=== PATIENT | female | born 1985 | race Hispanic/Latino ===

== ENCOUNTER 2018-01-01 11:52 | Emergency (ER) | payer SELFPAY ==
[2018-01-01] MEDS ORDERED: ONDANSETRON 4 MG (ODT) TAB ONE (12:43)
[2018-01-01] MEDS ORDERED: KETOROLAC 30 MG/ML INJ ONE (12:44)
[2018-01-01 12:54] LABS: Urine Blood NEGATIVE (NEG); Urine Glucose NEGATIVE (NEG); Urine Protein NEGATIVE (NEG); Urine pH 6.5 (5.0-7.0)
--- NOTE | 2018-01-01 13:44 | RAD REPORT ---
EXAM DESCRIPTION: RAD - Ribs Left - 01/01/2018 1:21 pm CLINICAL HISTORY: Fall 2-3 weeks earlier, persistent left rib pain COMPARISON: None. FINDINGS: No displaced rib fracture is seen and no non-displaced rib fractures suspected. No aggress estela rib lesion. No underlying pneumothorax, effusion, infiltrate or pulmonary contusion. IMPRESSION: No displaced rib fracture seen and no nondisplaced acute or subacute fracture seen. No pneumothorax or other acute pleural/parenchymal process.
--- NOTE | 2018-01-01 13:59 | EDPHYS ---
Physician Documentation [facility] Name: Shani Pat Age: 32 yrs Sex: Female : 1985 Arrival Date: 01/01/2018 Time: 11:57 Bed 11 Private MD: None, None ED Physician Jan Perry HPI: 01/01 12:38 This 32 yrs old Female presents to ER via Ambulatory with complaints of Chest snw Wall Injury. 12:38 The patient or guardian reports chest pain that is located primarily in the anterior snw chest wall, left lateral anterior chest. Onset: The symptoms/episode began/occurred suddenly, 2 day(s) ago, and became worse today, and became persistent. The pain does not radiate. Associated signs and symptoms: Pertinent positives: vomiting. The chest pain is described as sharp, stabbing. Severity of pain: At its worst the pain was severe. The patient has not experienced similar symptoms in the past. The patient has not recently seen a physician. Historical: - Allergies: 12:03 No Known Allergies; hb - Home Meds: 12:03 None [Active]; hb - PMHx: 12:03 None; hb - PSHx: 12:03 None; hb - Immunization history:: Adult Immunizations up to date. - Social history:: Smoking status: Patient uses tobacco products, denies chronic smoking, but will smoke occasionally. - Ebola Screening: : No symptoms or risks identified at this time. ROS: 12:37 Constitutional: Negative for fever, chills, and weight loss, Eyes: Negative for injury, snw pain, redness, and discharge, ENT: Negative for injury, pain, and discharge, Neck: Negative for injury, pain, and swelling, Cardiovascular: Negative for chest pain, palpitations, and edema, Abdomen/GI: Negative for abdominal pain, diarrhea, and constipation, + nausea/vomiting this am. Back: Negative for injury and pain, : Negative for injury, bleeding, discharge, and swelling, Skin: Negative for injury, rash, and discoloration. 12:37 MS/extremity: Positive for injury or acute deformity, decreased range of motion, tenderness, of the left lateral anterior chest. Exam: 12:35 Constitutional: This is a well developed, well nourished patient who is awake, alert, snw and in no acute distress. Head/Face: Normocephalic, atraumatic. Eyes: Pupils equal round and reactive to light, extra-ocular motions intact. Lids and lashes normal. Conjunctiva and sclera are non-icteric and not injected. Cornea within normal limits. Periorbital areas with no swelling, redness, or edema. ENT: Nares patent. No nasal discharge, no septal abnormalities noted. Tympanic membranes are normal and external auditory canals are clear. Oropharynx with no redness, swelling, or masses, exudates, or evidence of obstruction, uvula midline. Mucous membranes moist. Neck: Trachea midline, no thyromegaly or masses palpated, and no cervical lymphadenopathy. Supple, full range of motion without nuchal rigidity, or vertebral point tenderness. No Meningismus. 12:35 Cardiovascular: Regular rate and rhythm with a normal S1 and S2. No gallops, murmurs, or rubs. Normal PMI, no JVD. No pulse deficits. Abdomen/GI: Soft, non-tender, with normal bowel sounds. No distension or tympany. No guarding or rebound. No evidence of tenderness throughout. Back: No spinal tenderness. No costovertebral tenderness. Full range of motion. Skin: Warm, dry with normal turgor. Normal color with no rashes, no lesions, and no evidence of cellulitis. MS/ Extremity: Pulses equal, no cyanosis. Neurovascular intact. Full, normal range of motion. Neuro: Awake and alert, GCS 15, oriented to person, place, time, and situation. Cranial nerves II-XII grossly intact. Motor strength 5/5 in all extremities. Sensory grossly intact. Cerebellar exam normal. Normal gait. 12:35 Chest/axilla: Inspection: ecchymosis, that is moderate, of the left lateral anterior chest Palpation: crepitus, is not appreciated, tenderness, that is moderate, that totally reproduces the patient's complaints, Axilla: are normal. 12:35 Respiratory: the patient does not display signs of respiratory distress, Respirations: shallow respirations, splinting, that is moderate, Breath sounds: are clear throughout. Vital Signs: 12:02 BP 133 / 88; Pulse 105; Resp 18; Temp 97.8; Pulse Ox 99% on R/A; Weight 61.23 kg; hb Height 5 ft. 2 in. (157.48 cm); Pain 9/10; 14:00 BP 126 / 78; Pulse 92; Resp 16; Pulse Ox 100% on R/A; hb 12:02 Body Mass Index 24.69 (61.23 kg, 157.48 cm) hb MDM: 12:22 Patient medically screened. lina 14:03 Data reviewed: vital signs, nurses notes. Data interpreted: Pulse oximetry: on room air snw is 99 %. Interpretation: normal. Counseling: I had a detailed discussion with the patient and/or guardian regarding: the historical points, exam findings, and any diagnostic results supporting the discharge/admit diagnosis, the presence of at least one elevated blood pressure reading (>120/80) during this emergency department visit, lab results, the need for outpatient follow up, to return to the emergency department if symptoms worsen or persist or if there are any questions or concerns that arise at home. Special discussion: Based on the patient's history, exam, and Dx evaluation, there is no indication for emergent intervention or inpatient Tx. It is understood by the patient/guardian that if the Sx's persist or worsen they need to return immediately for re-evaluation. I have referred the patient to see his PCP for further evaluation of high blood pressure. Based on the history and exam findings, there is no indication for further emergent testing or inpatient evaluation. I discussed with the patient/guardian the need to see the primary care provider for further evaluation of the symptoms. 01/01 12:47 Order name: Urine Dipstick--Ancillary (enter results); Complete Time: 13:00 ag 01/01 12:47 Order name: Urine --Ancillary (enter results); Complete Time: 13:00 ag 01/01 12:06 Order name: Ribs Left XRAY; Complete Time: 13:53 snw 01/01 12:06 Order name: Urine Test (obtain specimen); Complete Time: 12:47 snw 01/01 12:06 Order name: Urine Dipstick-Ancillary (obtain specimen); Complete Time: 12:47 snw Administered Medications: 12:47 Drug: TORadol 60 mg Route: IM; Site: right gluteus; sv 12:47 Drug: Zofran 4 mg Route: PO; sv Disposition: 14:32 Co-signature as Attending Physician, Jan Perry MD I agree with the assessment and [facility] plan of care. Disposition: 01/01/18 13:58 Discharged to Home. Impression: Fall on same level from slipping, tripping and stumbling with subsequent striking against object, Contusion of left front wall of thorax. - Condition is Stable. - Discharge Instructions: Rib Contusion, Fall Prevention and Home Safety, Rib Fracture. - Prescriptions for Zofran 8 mg Oral Tablet - take 1 tablet by ORAL route every 12 hours As needed; 15 tablet. Diclofenac Sodium 75 mg Oral Tablet Sustained Release - take 1 tablet by ORAL route 2 times per day; 30 tablet. - Medication Reconciliation Form, Thank You Letter, Antibiotic Education, Prescription Opioid Use form. - Follow up: Private Physician; When: 2 - 3 days; Reason: Recheck today's complaints, Continuance of care, Re-evaluation by your physician. Follow up: Emergency Department; When: As needed; Reason: Worsening of condition. Signatures: Dispatcher [employer] Christina Velázquez, Jan Licea RN, MD MD cha Therrien, Shelly, LINE THERAPIST-C LINE THERAPIST-Csnw Susana Fabian RN RN Corrections: (The following items were deleted from the chart) 14:11 13:58 01/01/2018 13:58 Discharged to Home. Impression: Fall on same level from hb slipping, tripping and stumbling with subsequent striking against object; Contusion of left front wall of thorax. Condition is Stable. Forms are Medication Reconciliation Form, Thank You Letter, Antibiotic Education, Prescription Opioid Use. Follow up: Private Physician; When: 2 - 3 days; Reason: Recheck today's complaints, Continuance of care, Re-evaluation by your physician. Follow up: Emergency Department; When: As needed; Reason: Worsening of condition. snw
--- NOTE | 2018-01-01 13:59 | ER ---
Nurse's Notes [facility] Name: Shani Pat Age: 32 yrs Sex: Female : 1985 Arrival Date: 01/01/2018 Time: 11:57 Bed 11 Private MD: None, None Diagnosis: Fall on same level from slipping, tripping and stumbling with subsequent striking against object;Contusion of left front wall of thorax Presentation: 01/01 12:00 Presenting complaint: Patient states: Fell in shower 2 days ago, landed on side of tub, hb now c/o left sided rib cage pain /10. Care prior to arrival: None. 12:00 Acuity: CECI 4 hb 12:00 Method Of Arrival: Ambulatory hb 12:48 Transition of care: patient was not received from another setting of care. Onset of sv symptoms was December 30, 2017. Risk Assessment: Do you want to hurt yourself or someone else? Patient reports no desire to harm self or others. Initial Sepsis Screen: Does the patient meet any 2 criteria? No. Patient's initial sepsis screen is negative. Does the patient have a suspected source of infection? No. Patient's initial sepsis screen is negative. Historical: - Allergies: 12:03 No Known Allergies; hb - Home Meds: 12:03 None [Active]; hb - PMHx: 12:03 None; hb - PSHx: 12:03 None; hb - Immunization history:: Adult Immunizations up to date. - Social history:: Smoking status: Patient uses tobacco products, denies chronic smoking, but will smoke occasionally. - Ebola Screening: : No symptoms or risks identified at this time. Screenin:49 Abuse screen: Denies threats or abuse. Denies injuries from another. Nutritional sv screening: No deficits noted. Tuberculosis screening: No symptoms or risk factors identified. Fall Risk None identified. Assessment: 12:15 General: Appears in no apparent distress. uncomfortable, Behavior is calm, cooperative. hb Pain: Pain currently is 9 out of 10 on a pain scale. Neuro: Level of Consciousness is awake, alert, obeys commands, Oriented to person, place, time, situation. Cardiovascular: Capillary refill < 3 seconds Patient's skin is warm and dry. Respiratory: Airway is patent Trachea midline Respiratory effort is even, unlabored, Respiratory pattern is regular, symmetrical. Musculoskeletal: Reports pain in left lateral anterior chest. Vital Signs: 12:02 BP 133 / 88; Pulse 105; Resp 18; Temp 97.8; Pulse Ox 99% on R/A; Weight 61.23 kg; hb Height 5 ft. 2 in. (157.48 cm); Pain 9/10; 14:00 BP 126 / 78; Pulse 92; Resp 16; Pulse Ox 100% on R/A; hb 12:02 Body Mass Index 24.69 (61.23 kg, 157.48 cm) hb ED Course: 11:57 Patient arrived in ED. sb2 11:57 None, None is Private Physician. sb2 12:02 Triage completed. hb 12:03 Arm band placed on right wrist. hb 12:05 Celia Wooten FNP-C is [facility]. snw 12:05 Jan Perry MD is Attending Physician. snw 12:29 Susana Fabian, RN is Primary Nurse. hb 12:48 Patient has correct armband on for positive identification. sv 13:18 Awaiting for x-ray. sv 13:18 X-ray completed. Patient tolerated procedure well. Patient moved to radiology via sw wheelchair. Patient moved back from radiology. 13:20 Ribs Left XRAY In Process Unspecified. EDMS 14:10 No provider procedures requiring assistance completed. Patient did not have IV access hb during this emergency room visit. Administered Medications: 12:47 Drug: TORadol 60 mg Route: IM; Site: right gluteus; sv 12:47 Drug: Zofran 4 mg Route: PO; sv Outcome: 13:58 Discharge ordered by . snw 14:09 Discharged to home ambulatory. hb 14:09 Condition: stable 14:09 Discharge instructions given to patient, Instructed on discharge instructions, follow up and referral plans. medication usage, Demonstrated understanding of instructions, follow-up care, medications, Prescriptions given X 2. 14:11 Patient left the ED. hb Signatures: Dispatcher [employer] EDMS Christina Marie, RN RN Celia Wooten FNP-C BLOOD BANK WORKER-Justyna Christopher Susana Fabian, RN RN Ayanna Spears sb2
== END 2018-01-01 14:11 | disposition home or self-care (01) ==
LOC: ER 11:52
DX: S20.212A Contusion of left front wall of thorax, initial encounter (principal); W01.10XA Fall on same level from slipping, tripping and stumbling with subsequent striking against unspecified object, initial encounter; Y93.9 Activity, unspecified; Y92.9 Unspecified place or not applicable; Z72.0 Tobacco use
CPT/HCPCS: 81003; 81025; 96372; 99283

== ENCOUNTER 2018-01-03 15:20 | Emergency (ER) | payer SELFPAY ==
--- NOTE | 2018-01-03 16:34 | EDPHYS ---
Physician Documentation [facility] Name: Shani Pat Age: 32 yrs Sex: Female : 1985 Arrival Date: 01/03/2018 Time: 15:23 Bed 5 Private MD: None, None ED Physician Gilberto Alexander HPI: 01/03 16:03 This 32 yrs old Female presents to ER via Ambulatory with complaints of pm1 vomiting and diarrhea. 16:08 Patient with complaints of possible reactions of nausea and vomiting. pm1 16:08 Patient was seen here two days ago for left rib pain and discharged home with pm1 diclofenac and Zofran. Patient fell about 1 week ago in the shower and landed on her left rib cage. Patient diagnosed with rib fractures. Patient was not able to afford the Zofran but has been taking diclofenac. When the patient has been taking the diclofenac with food she reports that she vomits. Patient has been having multiple episodes of diarrhea for the past two days. 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 Patient without any abdominal pain, shortness of breath or fever. Diclofenac does work for the rib pain.. 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 - Social history:: Smoking status: Patient/guardian denies using tobacco. - Ebola Screening: : Patient negative for fever greater than or equal to 101.5 degrees Fahrenheit, and additional compatible Ebola Virus Disease symptoms Patient denies exposure to infectious person Patient denies travel to an Ebola-affected area in the 21 days before illness onset. ROS: 17:12 Constitutional: Negative for fever, chills, and weight loss, Eyes: Negative for injury, pm1 pain, redness, and discharge, ENT: Negative for injury, pain, and discharge, Neck: Negative for injury, pain, and swelling, Cardiovascular: Negative for chest pain, palpitations, and edema, left lower rib pain Respiratory: Negative for shortness of breath, cough, wheezing, and pleuritic chest pain. 17:12 Back: Negative for injury and pain, : Negative for injury, bleeding, discharge, and swelling, MS/Extremity: Negative for injury and deformity, Skin: Negative for injury, rash, and discoloration, Neuro: Negative for headache, weakness, numbness, tingling, and seizure. 17:12 Abdomen/GI: Positive for nausea, vomiting, diarrhea, Negative for abdominal pain. Exam: 17:15 Constitutional: This is a well developed, well nourished patient who is awake, alert, pm1 and in no acute distress. Head/Face: Normocephalic, atraumatic. Eyes: Pupils equal round and reactive to light, extra-ocular motions intact. Lids and lashes normal. Conjunctiva and sclera are non-icteric and not injected. Cornea within normal limits. Periorbital areas with no swelling, redness, or edema. ENT: Nares patent. No nasal discharge, no septal abnormalities noted. Tympanic membranes are normal and external auditory canals are clear. Oropharynx with no redness, swelling, or masses, exudates, or evidence of obstruction, uvula midline. Mucous membranes moist. Neck: Trachea midline, no thyromegaly or masses palpated, and no cervical lymphadenopathy. Supple, full range of motion without nuchal rigidity, or vertebral point tenderness. No Meningismus. 17:15 Cardiovascular: Regular rate and rhythm with a normal S1 and S2. No gallops, murmurs, or rubs. Normal PMI, no JVD. No pulse deficits. Respiratory: Lungs have equal breath sounds bilaterally, clear to auscultation and percussion. No rales, rhonchi or wheezes noted. No increased work of breathing, no retractions or nasal flaring. 17:15 Back: No spinal tenderness. No costovertebral tenderness. Full range of motion. MS/ Extremity: Pulses equal, no cyanosis. Neurovascular intact. Full, normal range of motion. Neuro: Awake and alert, GCS 15, oriented to person, place, time, and situation. Cranial nerves II-XII grossly intact. Motor strength 5/5 in all extremities. Sensory grossly intact. Cerebellar exam normal. Normal gait. 17:15 Chest/axilla: Inspection: purplish bruise to left lateral lower rib area, Palpation: tenderness, that totally reproduces the patient's complaints, Focal tenderness to left lateral lower rib area with bruising. 17:15 Abdomen/GI: Inspection: abdomen appears normal, Bowel sounds: normal, in all quadrants, Palpation: abdomen is soft and non-tender, in all quadrants. 17:15 Skin: Appearance: normal except for affected area, Bruising to left lateral lower rib area. Vital Signs: 15:48 BP 117 / 93; Pulse 86; Resp 16; Temp 98.4; Pulse Ox 99% on R/A; Weight 61.23 kg; Height aj 5 ft. 1 in. (154.94 cm); 15:48 Body Mass Index 25.51 (61.23 kg, 154.94 cm) aj MDM: 16:04 Data reviewed: vital signs. Data interpreted: Pulse oximetry: on room air is 99 %. pm1 Interpretation: normal. Counseling: I had a detailed discussion with the patient and/or guardian regarding: the historical points, exam findings, and any diagnostic results supporting the discharge/admit diagnosis, the need for outpatient follow up, to return to the emergency department if symptoms worsen or persist or if there are any questions or concerns that arise at home. 16:05 Refusal of service: The patient/guardian displays adequate decision making capability pm1 and despite a detailed discussion of alternatives, benefits, risks, and consequences refuses: all lab tests, Patient does not want any labs performed. Patient requests different pain medications and a antiemetic that is not as expensive as the Zofran from her prior visit 2 days ago. 16:33 Patient medically screened. pm1 Administered Medications: 16:55 Drug: Tylenol #3 (300 mg-30 mg) 1 tablet Route: PO; iw 16:55 Drug: Phenergan 25 mg Route: PO; iw Disposition: 22:13 Co-signature as Attending Physician, Gilberto Alexander MD I agree with the assessment and kdr plan of care. Disposition: 01/03/18 16:33 Discharged to Home. Impression: Vomiting, Diarrhea, unspecified. - Condition is Stable. - Discharge Instructions: Food Choices to Help Relieve Diarrhea, Adult, Diarrhea, Nausea and Vomiting, Viral Gastroenteritis. - Prescriptions for Tylenol- Codeine #3 300-30 mg Oral Tablet - take 2 tablets by ORAL route every 6 hours As needed; 20 tablet. promethazine 25 mg Oral Tablet - take 1 tablet by ORAL route every 6 hours As needed; 20 tablet. - Medication Reconciliation Form, Thank You Letter, Prescription Opioid Use form. - Follow up: Emergency Department; When: As needed; Reason: Worsening of condition. Follow up: Private Physician; When: 2 - 3 days; Reason: Recheck today's complaints, Continuance of care, Re-evaluation by your physician. - Problem is new. - Symptoms have improved. Signatures: Sindhu Valencia RN RN aj Gilberto Alexander MD MD kdr Corrina Downey RN RN iw Srini Phillips NP POLYSOMNOGRAPHIC TECHNICIAN pm1 Corrections: (The following items were deleted from the chart) 17:03 16:33 01/03/2018 16:33 Discharged to Home. Impression: Vomiting; Diarrhea, unspecified. iw Condition is Stable. Forms are Medication Reconciliation Form, Thank You Letter, Antibiotic Education, Prescription Opioid Use. Follow up: Emergency Department; When: As needed; Reason: Worsening of condition. Follow up: Private Physician; When: 2 - 3 days; Reason: Recheck today's complaints, Continuance of care, Re-evaluation by your physician. Problem is new. Symptoms have improved. pm1
--- NOTE | 2018-01-03 16:34 | ER ---
Nurse's Notes [facility] Name: Shani Pat Age: 32 yrs Sex: Female : 1985 Arrival Date: 01/03/2018 Time: 15:23 Bed 5 Private MD: None, None Diagnosis: Vomiting;Diarrhea, unspecified Presentation: 01/03 15:46 Presenting complaint: Patient states: Left rib pain, DX with rib FX here and given aj Diclofenac Sodium, reports "all the side effects" diarrhea and nausea. Transition of care: patient was not received from another setting of care. Onset of symptoms was December 30, 2017. Care prior to arrival: None. 15:46 Method Of Arrival: Ambulatory aj 15:46 Acuity: CECI 5 aj 17:02 Risk Assessment: Do you want to hurt yourself or someone else? Patient reports no iw desire to harm self or others. Initial Sepsis Screen: Does the patient meet any 2 criteria? No. Patient's initial sepsis screen is negative. Does the patient have a suspected source of infection? No. Patient's initial sepsis screen is negative. Triage Assessment: 15:48 General: Appears in no apparent distress. comfortable, Behavior is calm, cooperative, aj appropriate for age. Pain: Complains of pain in left eighth rib and left ninth rib. Neuro: Level of Consciousness is awake, alert, obeys commands, Oriented to person, place, time, situation, Appropriate for age. Respiratory: Airway is patent Respiratory effort is even, unlabored, Respiratory pattern is regular, symmetrical. Derm: Skin is intact, is healthy with good turgor, Skin is pink, warm \\T\\ dry. normal. ADVISOR TO COMMAND IN COMBAT: 17:02 LMP N/A - iw Historical: - Allergies: 15:48 No Known Allergies; aj - Home Meds: 15:48 None [Active]; aj - PMHx: 15:48 None; aj - PSHx: 15:48 None; aj - Immunization history:: Adult Immunizations up to date. - Social history:: Smoking status: Patient/guardian denies using tobacco. - Ebola Screening: : Patient negative for fever greater than or equal to 101.5 degrees Fahrenheit, and additional compatible Ebola Virus Disease symptoms Patient denies exposure to infectious person Patient denies travel to an Ebola-affected area in the 21 days before illness onset. Screenin:02 Abuse screen: Denies threats or abuse. Denies injuries from another. Nutritional iw screening: No deficits noted. Tuberculosis screening: No symptoms or risk factors identified. Fall Risk None identified. Assessment: 16:00 General: Appears in no apparent distress. comfortable, well groomed, well developed, sg well nourished, Behavior is calm, cooperative, appropriate for age. Pain: Complains of pain in left lateral posterior chest and left lateral anterior chest Quality of pain is described as aching, tender. Neuro: Level of Consciousness is awake, alert, obeys commands, Oriented to person, place, time, situation, Speech is normal, Facial symmetry appears normal. Cardiovascular: Heart tones S1 S2 present Capillary refill is brisk in bilateral fingers Patient's skin is warm and dry. Chest pain is denied. Respiratory: Airway is patent Respiratory effort is even, unlabored, Respiratory pattern is regular, symmetrical. Respiratory: Reports pain with respiration Breath sounds are clear. GI: No signs and/or symptoms were reported involving the gastrointestinal system. : No signs and/or symptoms were reported regarding the genitourinary system. EENT: No signs and/or symptoms were reported regarding the EENT system. Derm: Skin is pink, warm \\T\\ dry. Musculoskeletal: Circulation, motion, and sensation intact. Reports pain in left lateral posterior chest and left lateral anterior chest. Vital Signs: 15:48 BP 117 / 93; Pulse 86; Resp 16; Temp 98.4; Pulse Ox 99% on R/A; Weight 61.23 kg; Height aj 5 ft. 1 in. (154.94 cm); 15:48 Body Mass Index 25.51 (61.23 kg, 154.94 cm) aj ED Course: 15:23 Patient arrived in ED. mr 15:24 None, None is Private Physician. mr 15:48 Triage completed. aj 15:48 Arm band placed on right wrist. Patient placed in an exam room. aj 15:53 Gilberto Alexander MD is Attending Physician. kdr 15:53 Srini Phillips NP is PHCP. pm1 16:20 Luis Antonio Claros, VALENTINO is Primary Nurse. sg 17:02 Patient has correct armband on for positive identification. iw 17:02 No provider procedures requiring assistance completed. Patient did not have IV access iw during this emergency room visit. Administered Medications: 16:55 Drug: Tylenol #3 (300 mg-30 mg) 1 tablet Route: PO; iw 16:55 Drug: Phenergan 25 mg Route: PO; iw Outcome: 16:33 Discharge ordered by . pm1 17:02 Discharged to home ambulatory, with family. iw 17:02 Condition: good 17:02 Discharge instructions given to patient, family, Instructed on discharge instructions, follow up and referral plans. medication usage, Demonstrated understanding of instructions, follow-up care, medications, Prescriptions given X 2. 17:03 Patient left the ED. iw Signatures: Luis Antonio Claros RN Sindhu Anaya RN RN aj Rittger, Kevin, MD MD kdr Rivera, Maria mr Corrina Downey RN RN iw Srini Phillips, [facility] [employer] [facility] CLERK pm1
[2018-01-03] MEDS ORDERED: CODEINE 30MG/APAP 300MG TAB ONE (16:53)
[2018-01-03] MEDS ORDERED: PROMETHAZINE 25 MG TABLET ONE (16:54)
== END 2018-01-03 17:03 | disposition home or self-care (01) ==
LOC: ER 15:20
DX: R11.10 Vomiting, unspecified (principal); R19.7 Diarrhea, unspecified
CPT/HCPCS: 99283

== ENCOUNTER 2018-01-05 21:12 | Observation (INO) | payer SELFPAY ==
[2018-01-05] MEDS ORDERED: NA CHLORIDE 0.9% 1,000 ML ONE (21:56)
[2018-01-05 22:14] LABS: Bicarbonate 25 mEq/L (21-31); Glucose Level 70 mg/dL (65-120); Potassium 3.2 mEq/L (3.6-5.0); Sodium Level 135 mEq/L (135-145)
[2018-01-05 22:17] LABS: Absolute Lymphocytes (CBC) 2.1 K/uL (0.7-4.9); Absolute Monocytes 0.5 K/uL (0.1-1.3); Absolute Neutrophil 4.7 K/uL (1.8-8.0); Basophils % 0.9 % (0-1.3); Eosinophils % 0.9 % (0-4.4); Hematocrit 22.5 % (36.0-45.0); Lymphocytes % 27.8 % (15.3-44.8); MCH 16.9 pg (27.0-35.0); MCV 59.2 fL (80-100); MPV 8.8 fL (7.6-11.3); Monocytes % 6.8 % (3.3-12.3); RBC Red Blood Cell Count 3.79 M/uL (3.86-4.86)
[2018-01-05 22:20] LABS: ALT/SGPT 14 IU/L (10-60); AST/SGOT 29 IU/L (10-42); Albumin 4.1 g/dL (3.2-5.5); Alkaline Phosphatase 52 IU/L (42-121); BUN Blood Urea Nitrogen 10 mg/dL (6-20); Bilirubin Direct 0.1 mg/dL (0-0.2); Bilirubin Total 0.4 mg/dL (0.3-1.2); Creatine Phosphokinase 64 IU/L (22-269); Magnesium 1.8 mg/dL (1.8-2.5); Protein, Total 7.5 g/dL (6.0-8.3)
[2018-01-05 22:53] LABS: Transferrin 357 mg/dL (192-382)
[2018-01-05 22:59] LABS: Anisocytosis 1+; Blood Morphology Comment NOTED (NOT SEEN); Hypochromasia 2+; Platelet Estimate ADEQ; Polychromasia SLIGHT; Urine White Blood Cell Casts OK
[2018-01-05 23:09] LABS: Ferritin 2.3 ng/ml (11.0-306.8)
[2018-01-05 23:11] LABS: Iron < 7.0 ug/dL (28-170)
--- NOTE | 2018-01-05 23:38 | ER ---
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 rv Transition of care: patient was not received from another setting of care. Onset of symptoms was January 05, 2018 at 20:30. Risk Assessment: Do you want to hurt yourself or someone else? Patient reports no desire to harm self or others. Initial Sepsis Screen: Does the patient meet any 2 criteria? No. Patient's initial sepsis screen is negative. Does the patient have a suspected source of infection? No. Patient's initial sepsis screen is negative. Care prior to arrival: Medication(s) given: Normal saline infusion, 1000 mL, IV initiated. 20 GA, in the right forearm, Glucose check: 134. 21:14 Method Of Arrival: EMS: [facility] rv 21:14 Acuity: CECI 3 rv Triage Assessment: 21:15 General: Appears in no apparent distress. comfortable, slender, Behavior is calm, rv cooperative, appropriate for age. Pain: Denies pain. EENT: No deficits noted. Neuro: Level of Consciousness is awake, alert, obeys commands, Oriented to person, place, time, situation, Appropriate for age. Cardiovascular: Rhythm is sinus tachycardia. Respiratory: Airway is patent Respiratory effort is even, unlabored, Respiratory pattern is regular, symmetrical. GI: No signs and/or symptoms were reported involving the gastrointestinal system. : No signs and/or symptoms were reported regarding the genitourinary system. Derm: No deficits noted. Musculoskeletal: Circulation, motion, and sensation intact. Range of motion: intact in all extremities. 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 - Social history:: Smoking status: Patient/guardian denies using tobacco. - Ebola Screening: : Patient negative for fever greater than or equal to 101.5 degrees Fahrenheit, and additional compatible Ebola Virus Disease symptoms Patient denies exposure to infectious person Patient denies travel to an Ebola-affected area in the 21 days before illness onset No symptoms or risks identified at this time. Screenin:20 Abuse screen: Denies threats or abuse. Denies injuries from another. Nutritional rv screening: No deficits noted. Tuberculosis screening: No symptoms or risk factors identified. Fall Risk None identified. Assessment: 21:00 General: SEE TRIAGE NOTE. 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 EMS REPORTS PALE/DIAPHORETIC ON SCENE. 22:30 Reassessment: IVF INFUSING, VS STABLE ON MONITOR. bp 01/06 00:00 Reassessment: CONSENT FOR PRBC TRANSFUSION SIGNED AND WITNESSED. bp 00:55 Reassessment: INITIATED 1ST UNIT PRBC TRANSFUSION. bp Vital Signs: 01/05 21:00 BP 135 / 90; Pulse 91; Resp 16; Temp 98.3; Pulse Ox 100% ; Weight 61.23 kg; Height 5 rv ft. 1 in. (154.94 cm); 22:30 BP 129 / 93; Pulse 95; Resp 16; Pulse Ox 100% ; bp 03 00:00 BP 144 / 99; Pulse 100; Resp 16; Pulse Ox 100% ; bp 01:00 BP 135 / 93; Pulse 92; Resp 16; Pulse Ox 100% ; bp 01:58 BP 128 / 90; Pulse 86; Resp 18; Temp 100; Pulse Ox 100% ; rv 01/05 21:00 Body Mass Index 25.51 (61.23 kg, 154.94 cm) rv ED Course: 01/05 21:13 Patient arrived in ED. rv 21:15 Triage completed. rv 21:19 Arm band placed on. rv 21:20 Patient has correct armband on for positive identification. Placed in gown. Bed in low rv position. Call light in reach. Side rails up X2. 21:20 IV discontinued, intact, bleeding controlled, EMS IV INFILTRATED. rv 21:30 Inserted saline lock: 20 gauge in right antecubital area, using aseptic technique. bp Blood collected. 21:32 Srini Phillips NP is PHCP. pm1 21:32 Damon Mcginnis MD is Attending Physician. pm1 21:49 Petr Holt RN is Primary Nurse. ao 22:14 X-ray completed. Portable x-ray completed in exam room. Patient tolerated procedure 1 well. 22:16 XRAY Chest (1 view) In Process Unspecified. EDMS 23:37 Janine uLcas MD is Hospitalizing Provider. pm1 01/06 00:29 Primary Nurse role handed off by Petr Holt RN bp 00:29 Quirino Ervin, VALENTINO is Primary Nurse. bp 02:31 No provider procedures requiring assistance completed. rv Administered Medications: 01/05 22:00 Drug: NS 0.9% 1000 ml Route: IV; Rate: 1000 ml; Site: right antecubital; bp 23:46 Follow up: IV Status: Completed infusion rv 23:39 Drug: Potassium Effervescent Tablet 50 mEq Route: PO; rv 23:46 Follow up: Response: No adverse reaction rv Outcome: 23:37 Decision to Hospitalize by Provider. pm1 01/06 02:53 Admitted to Med/surg accompanied by tech, family with patient, via wheelchair, room rv 228, with chart, Report called to DARIUS AVELAR Condition: stable Instructed on the need for admit. 03:35 Patient left the ED. bp Signatures: Dispatcher [employer] EDMS ArnaldoEvon 1 Petr Holt, RN RN ao Srini Phillips, SHEAR OPERATOR AUTOMATIC SHEAR OPERATOR AUTOMATIC pm1 Quirino Ervin, VALENTINO AVELAR bp Jesse Tai RN RN rv Corrections: (The following items were deleted from the chart) 01/05 21:29 21:15 Home Meds: None; rv rv
--- NOTE | 2018-01-05 23:38 | EDPHYS ---
Physician Documentation [facility] Name: Shani Pat Age: 32 yrs Sex: Female : 1985 Arrival Date: 01/05/2018 Time: 21:13 Bed 5 Private MD: ED Physician Damon Mcginnis HPI: 01/05 22:00 This 32 yrs old Female presents to ER via EMS with complaints of Syncope. pm1 22:00 The patient has experienced syncope, collapsed. Onset: The symptoms/episode pm1 began/occurred just prior to arrival. Duration: This was a single episode. Context: the episode(s) was witnessed, by co-worker(s), occurred at work, occurred while the patient was working, Just prior to the episode the patient experienced no apparent symptoms. Associated injury: The patient did not suffer any apparent associated injury. Associated signs and symptoms: Pertinent positives: Diarrhea for 1 week, Pertinent negatives: abdominal pain, chest pain, dizziness, headache, numbness, shortness of breath, tingling. The patient has not experienced similar symptoms in the past. The patient has not recently seen a physician. . 23:43 has been told by her best friend about 3 weeks ago that he noticed that she looks pale pm1 and has not color. Patient with history of iron deficiency anemia that she has known about since the age of 19. Has not been taking any iron supplementation for years. 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 - Social history:: Smoking status: Patient/guardian denies using tobacco. - Ebola Screening: : Patient negative for fever greater than or equal to 101.5 degrees Fahrenheit, and additional compatible Ebola Virus Disease symptoms Patient denies exposure to infectious person Patient denies travel to an Ebola-affected area in the 21 days before illness onset No symptoms or risks identified at this time. ROS: 22:00 Constitutional: Negative for fever, chills, and weight loss, Eyes: Negative for injury, pm1 pain, redness, and discharge, ENT: Negative for injury, pain, and discharge, Neck: Negative for injury, pain, and swelling, Cardiovascular: Negative for chest pain, palpitations, and edema, Respiratory: Negative for shortness of breath, cough, wheezing, and pleuritic chest pain, Abdomen/GI: Negative for abdominal pain, nausea, vomiting, diarrhea, and constipation, Back: Negative for injury and pain, : Negative for injury, bleeding, discharge, and swelling, MS/Extremity: Negative for injury and deformity, Skin: Negative for injury, rash, and discoloration. 22:00 Neuro: Positive for syncope, Negative for altered mental status, dizziness, headache. Exam: 22:00 Abdomen/GI: Inspection: abdomen appears normal, Bowel sounds: normal, Palpation: pm1 abdomen is soft and non-tender, mass, is not appreciated, rebound tenderness, is not appreciated. 22:00 Constitutional: This is a well developed, well nourished patient who is awake, alert, and in no acute distress. Head/Face: Normocephalic, atraumatic. ENT: Nares patent. No nasal discharge, no septal abnormalities noted. Tympanic membranes are normal and external auditory canals are clear. Oropharynx with no redness, swelling, or masses, exudates, or evidence of obstruction, uvula midline. Mucous membranes moist. Neck: Trachea midline, no thyromegaly or masses palpated, and no cervical lymphadenopathy. Supple, full range of motion without nuchal rigidity, or vertebral point tenderness. No Meningismus. Cardiovascular: Regular rate and rhythm with a normal S1 and S2. No gallops, murmurs, or rubs. Normal PMI, no JVD. No pulse deficits. 22:00 Respiratory: Lungs have equal breath sounds bilaterally, clear to auscultation and percussion. No rales, rhonchi or wheezes noted. No increased work of breathing, no retractions or nasal flaring. Back: No spinal tenderness. No costovertebral tenderness. Full range of motion. 22:00 Eyes: Periorbital structures: appear normal, Pupils: no acute changes, Extraocular movements: intact throughout, Conjunctiva: pale, bilaterally. 22:00 Chest/axilla: Inspection: normal, Palpation: crepitus, is not appreciated, tenderness, Focal tenderness to left midclavicular 7 - 8 rib. 22:00 Skin: Appearance: normal except for affected area, Color: pale. 22:00 Neuro: Orientation: is normal, Cranial nerves: CN II- XII are normal as tested, Motor: is normal, moves all fours, Sensation: is normal, no obvious gross deficits. Vital Signs: 21:00 BP 135 / 90; Pulse 91; Resp 16; Temp 98.3; Pulse Ox 100% ; Weight 61.23 kg; Height 5 rv ft. 1 in. (154.94 cm); 22:30 BP 129 / 93; Pulse 95; Resp 16; Pulse Ox 100% ; bp 06/03 00:00 BP 144 / 99; Pulse 100; Resp 16; Pulse Ox 100% ; bp 01:00 BP 135 / 93; Pulse 92; Resp 16; Pulse Ox 100% ; bp 01:58 BP 128 / 90; Pulse 86; Resp 18; Temp 100; Pulse Ox 100% ; rv 01/05 21:00 Body Mass Index 25.51 (61.23 kg, 154.94 cm) rv MDM: 01/05 21:44 Patient medically screened. pm1 23:36 Data reviewed: vital signs. Data interpreted: Pulse oximetry: on room air is 100 %. pm1 Interpretation: normal. Counseling: I had a detailed discussion with the patient and/or guardian regarding: the historical points, exam findings, and any diagnostic results supporting the discharge/admit diagnosis, lab results, the need for further work-up and treatment in the hospital. 23:38 Physician consultation: Janine Lucas MD was contacted at 23:38, regarding admission, pm1 patient's condition, and will see patient in ED. 01/05 21:49 Order name: Basic Metabolic Panel; Complete Time: 22:27 pm1 01/05 21:49 Order name: CBC with Diff; Complete Time: 23:20 pm01/05 21:49 Order name: CPK; Complete Time: 22:27 pm1 01/05 21:49 Order name: LFT's; Complete Time: 22:27 pm1 01/05 21:49 Order name: Magnesium; Complete Time: 22:27 pm01/05 22:28 Order name: Type And Screen pm01/05 21:49 Order name: XRAY Chest (1 view) pm01/05 22:30 Order name: Iron Level; Complete Time: 23:20 pm1 06/02 22:30 Order name: TIBC; Complete Time: 23:20 pm1 01/05 22:59 Order name: CBC Smear Scan; Complete Time: 23:20 EDMS 01/05 23:37 Order name: Packed RBC Leukored -1 EDMS 01/06 00:29 Order name: ABO/RH no charge; Complete Time: 01:05 EDMS 01/06 01:12 Order name: Urine Dipstick--Ancillary (enter results); Complete Time: 03:26 ms 01/06 01:12 Order name: Urine --Ancillary (enter results); Complete Time: 03:26 ms 01/05 21:49 Order name: EKG; Complete Time: 21:49 pm1 01/05 21:49 Order name: Cardiac monitoring; Complete Time: 22:02 pm1 01/05 21:49 Order name: EKG - Nurse/Tech; Complete Time: 22:02 pm1 01/05 21:49 Order name: IV Saline Lock; Complete Time: 22:02 pm1 01/05 21:49 Order name: Labs collected and sent; Complete Time: 22:02 pm1 01/05 21:49 Order name: O2 Per Protocol; Complete Time: 22:02 pm1 01/05 21:49 Order name: O2 Sat Monitoring; Complete Time: 22:02 pm1 01/05 21:49 Order name: Urine Dipstick-Ancillary (obtain specimen); Complete Time: 01:17 pm1 01/05 21:49 Order name: Urine Test (obtain specimen); Complete Time: 01:16 pm1 01/05 23:30 Order name: Transfuse; Complete Time: 01:16 pm1 Administered Medications: 22:00 Drug: NS 0.9% 1000 ml Route: IV; Rate: 1000 ml; Site: right antecubital; bp 23:46 Follow up: IV Status: Completed infusion rv 23:39 Drug: Potassium Effervescent Tablet 50 mEq Route: PO; rv 23:46 Follow up: Response: No adverse reaction rv Disposition: 01/06 04:35 Co-signature as Attending Physician, Damon Mcginnis MD I agree with the assessment and tw4 plan of care. Disposition: 01/05/18 23:37 Hospitalization ordered by Janine Lucas for Observation. Preliminary diagnosis are Syncope and collapse, Anemia, unspecified. - Bed requested for Telemetry/MedSurg (observation). - Status is Observation. bp - Condition is Stable. - Problem is new. - Symptoms have improved. UTI on Admission? No Signatures: Dispatcher [employer] EDTawnya Yeboah, RN VALENTINO kl Srini Phillips, CUSTOMER EXPERIENCE ANALYST CUSTOMER EXPERIENCE ANALYST pm1 Quirino Ervin RN RN Damon Hu MD MD tw4 Jesse Tai RN RN rv Corrections: (The following items were deleted from the chart) 01/05 21:29 21:15 Home Meds: None; rv rv 01/06 02:12 01/05 23:37 Hospitalization Ordered by Janine Lucas MD for Observation. Preliminary diagnosis is Syncope and collapse; Anemia, unspecified. Bed requested for Telemetry/MedSurg (observation). Status is Observation. Condition is Stable. Problem is new. Symptoms have improved. UTI on Admission? No. pm1 01/06 03:35 02:12 01/05/2018 23:37 Hospitalization Ordered by Janine Lucas MD for Observation. bp Preliminary diagnosis is Syncope and collapse; Anemia, unspecified. Bed requested for Telemetry/MedSurg (observation). Status is Observation. Condition is Stable. Problem is new. Symptoms have improved. UTI on Admission? No. kl
[2018-01-05] MEDS ORDERED: POTASSIUM 25 MEQ EFFERV TAB ONE (23:39)
--- NOTE | 2018-01-06 00:41 | P.HP ---
Certification for Inpatient Patient admitted to: Observation With expected LOS: <2 Midnights Practitioner: I am a practitioner with admitting privileges, knowledge of patient current condition, hospital course, and medical plan of care. Services: Services provided to patient in accordance with Admission requirements found in Title 42 Section 412.3 of the Code of Federal Regulations Patient History Date of Service: 01/06/18 Reason for admission: Syncope, anemia History of Present Illness: Ms Pat is a 32 years old woman who about 4 days ago fell in the shower, having a contusion on her left chest wall. She was evaluated in our ER and was discharged home with Codeine and Promethazine. Today, she was at work, and start feeling hot, subsequently, she collapse and become unconscious. The patient woke up on the floor. She denied any chest pain, palpitation or SOB prior to the fall. Her family member has noticed that she become pale lately. Lab work in ED is remarkable for anemia. Hgb is 6.3 mg/dl. She denied any dark or bloody stools, no bloody vomiting either. However, she states that her menses are heavies and last for two weeks. Allergies No Known Drug Allergies Allergy (Unverified 11/11/14 18:36) Unknown No Known Allergies Allergy (Uncoded 12/04/15 15:42) Unknown - Past Medical/Surgical History Past Surgical History: Reviewed- Non-Contributory - Family History Family History: Reviewed- Non-Contributory - Social History Smoking Status: Current some day smoker Counseled patient to stop smoking for: less than 10 minutes Alcohol use: Yes CD- Drugs: No Place of Residence: Home Review of Systems 10-point ROS is otherwise unremarkable Physical Examination - Physical Exam General: Alert, In no apparent distress, Other (pale) HEENT: Atraumatic, PERRLA, Mucous membr. moist/pink, EOMI, Sclerae nonicteric Neck: Supple, 2+ carotid pulse no bruit, No LAD, Without JVD or thyroid abnormality Respiratory: Clear to auscultation bilaterally, Normal air movement Cardiovascular: Regular rate/rhythm, Normal S1 S2 Gastrointestinal: Normal bowel sounds, No tenderness Musculoskeletal: No tenderness Integumentary: No rashes Neurological: Normal gait, Normal speech, Normal strength at 5/5 x4 extr, Normal tone, Normal affect Lymphatics: No axilla or inguinal lymphadenopathy - Studies Laboratory Data (last 24 hrs) 01/05/18 21:25: WBC 7.5, Hgb 6.4 L*, Hct 22.5 L, Plt Count 307 01/05/18 21:25: Sodium 135, Potassium 3.2 L, BUN 10, Creatinine 0.57, Glucose 70 , Magnesium 1.8, Total Bilirubin 0.4, AST 29, ALT 14, Alkaline Phosphatase 52 Assessment and Plan - Problems (Diagnosis) (1) Syncope and collapse Current Visit: Yes Status: Acute (2) Iron deficiency anemia due to chronic blood loss Current Visit: Yes Status: Acute - Plan #1 Syncope and collapse: liekely secondary to anemia associated with pain medication recently started. EKG shows normal SR, at 60's bpm without ST-T abnormalities. #2 iron deficiency anemia: likely secondary to heavy menses. Her Hgb is 6.3 mg/ dl. She will receive initially 2 UNITS of PRBC's, may require more. She will be discharged home with iron replacement once HH within normal limits. - Advance Directives Does patient have a Living Will: No Does patient have a Durable POA for Healthcare: No - Code Status/Comfort Care Code Status Assessed: Yes Code Status: Full Code
[2018-01-06] MEDS ORDERED: NA CHLORIDE 0.9% 250 ML ONE ×2 (00:43→03:05)
[2018-01-06 01:28] LABS: Urine Blood NEGATIVE (NEG); Urine Glucose NEGATIVE (NEG); Urine Protein NEGATIVE (NEG); Urine Specific Gravity 1.015 (1.005-1.030); Urine pH 7.5 (5.0-7.0)
[2018-01-06] MEDS ORDERED: ONDANSETRON 4 MG/2 ML VIAL IV PRN (02:42)
[2018-01-06 08:28] LABS: Hematocrit 32.5 % (36.0-45.0); MCH 19.4 pg (27.0-35.0); MPV 8.7 fL (7.6-11.3); RBC Red Blood Cell Count 4.93 M/uL (3.86-4.86)
[2018-01-06 08:37] LABS: BUN Blood Urea Nitrogen 7 mg/dL (6-20); Bicarbonate 26 mEq/L (21-31); Glucose Level 95 mg/dL (65-120); Potassium 4.4 mEq/L (3.6-5.0); Sodium Level 135 mEq/L (135-145)
--- NOTE | 2018-01-06 09:26 | RAD REPORT ---
EXAM DESCRIPTION: Denita Single View01/05/2018 10:16 pm CLINICAL HISTORY: Chest pain COMPARISON: none FINDINGS: The lungs appear clear of acute infiltrate. The heart is normal size IMPRESSION: No acute abnormalities displayed
--- NOTE | 2018-01-06 10:41 | EKG ---
Test Date: 2018-01-05 Test Time: 21:59:44 First Cook: GRIS MEASUREMENT RESULTS: Intervals: Rate: 76 MO: 148 QRSD: 90 QT: 358 QTc: 402 [place]: P: 46 MO: 148 QRS: 74 T: 52 INTERPRETIVE STATEMENTS: Normal sinus rhythm with sinus arrhythmia Normal ECG Compared to ECG 05/16/2015 11:15:44 No significant changes Electronically Signed On 01-06-18 10:40:36 CDT by Jordon De Santiago
--- NOTE | 2018-01-06 18:49 | DS ---
Date of Discharge: 01/06/2018 Discharge Diagnoses: 1.Severe 1 syncopal episode most likely secondary to pain medication and severe anemia. 2.Severe anemia secondary to iron deficiency secondary to heavy menses. 3.Pain secondary to recent rib fractures. Consult: None. Procedure: None except for x-ray, which was normal. History Of Present Illness: Please refer to Dr. Pennington note. Hospital Course: Initially, the patient presented with episode of feeling hot and syncope at work. Today the patient was evaluated and found to be severely anemic with hemoglobin of 6.3. The patient denies any black stool. There was no hematemesis. There were no hemoptysis but she reported heavy m enses for the last 10 days. The patient reported heavy periods for the last 2 years as well. The brenda jha was admitted and transfused 2 units of blood and hemoglobin improved and was up to 9.6 and she demanded to be discharged today home. I advised her to stay overnight for observation. She denied t hat. We will order stool occult blood before discharge. The patient understands she needs to start on iron tablet with ferrous sulfide 3 times a day with vitamin C or orange juice. Prescription was epifanio langford. For her recent rib fracture she will continue on pain medication with codeine with primary car e physician as well. I will try to get stool sample before she leaves to check for stool occult bloo d. Discharge Condition: Stable. Discharge Diet: Regular. Discharge Followup: With primary care physician this week with another CBC, and iron profile. Discharge Medication: Ferrous sulfate 325 mg 3 times a day, Phenergan 25 mg every 6 hours p.r.n. wu sea, codeine 30 mg every 6 hours p.r.n. pain. Discharge Exam: Vital signs: Blood pressure is 128/70, respiratory rate 20, pulse 65, temperature 9 7.8. General: The patient is alert and oriented x3. Does not look in distress. HEENT: Atraumatic, normocephalic. PERRLA. Oral mucosa is moist. Neck: Supple. No JVD. No carotid bruits. Chest: Clear to auscultation. Good air entry. Heart: Regular rate and rhythm. S1, S2 normal. No gallop or murmur. Abdomen: Soft, nontender. No masses. No hepatosplenomegaly. Positive bowel sounds. Extremities: No clubbing, no cyanosis, or edema. No calf tenderness. Neurologic: Deferred. MT/MODL Voice ID: [id number] Report ID: [id number]
== END 2018-01-06 14:29 | disposition home or self-care (01) ==
LOC: ER 21:12 → ERHOLD 01-06 01:43 → 2ND 01-06 02:40
PROVIDERS: ADMIT Internal Medicine; ATTEND Internal Medicine
DX: D50.0 Iron deficiency anemia secondary to blood loss (chronic) (principal); N92.0 Excessive and frequent menstruation with regular cycle; S22.39XA Fracture of one rib, unspecified side, initial encounter for closed fracture
CPT/HCPCS: 36415; 71045; 80048; 80076; 81003; 81025; 82274; 82550; 82728; 83540; 83735; 84466; 85025; 85027; 86850; 86900; 86901; 93005; 96360; 96361; 99285; G0378; J2405; J7030; P9016

== ENCOUNTER 2018-03-01 14:56 | Emergency (ER) | payer SELFPAY ==
[2018-03-01] MEDS ORDERED: FAMOTIDINE 20 MG TAB ONE (15:34)
[2018-03-01] MEDS ORDERED: ONDANSETRON 4 MG (ODT) TAB ONE (15:34)
[2018-03-01 15:47] LABS: Urine Blood NEGATIVE (NEG); Urine Glucose NEGATIVE (NEG); Urine Protein 1+ (NEG); Urine Specific Gravity 1.025 (1.005-1.030)
--- NOTE | 2018-03-01 16:14 | ER ---
Nurse's Notes [facility] Name: Shani Pat Age: 32 yrs Sex: Female : 1985 Arrival Date: 03/01/2018 Time: 14:57 Bed 23 Private MD: Diagnosis: Nausea and vomiting Presentation: 03/01 15:03 Presenting complaint: Patient states: "Sometimes I just start throwing up and I just aj1 don't start" Reports vomiting since last night. Denies pain. Transition of care: patient was not received from another setting of care. Onset of symptoms was February 28, 2018. Risk Assessment: Do you want to hurt yourself or someone else? Patient reports no desire to harm self or others. Initial Sepsis Screen: Does the patient meet any 2 criteria? No. Patient's initial sepsis screen is negative. Does the patient have a suspected source of infection? No. Patient's initial sepsis screen is negative. Care prior to arrival: None. 15:03 Method Of Arrival: [place] [facility] [place] 15:03 Acuity: CECI 3 aj1 Triage Assessment: 15:04 General: Appears in no apparent distress. comfortable, Behavior is calm, cooperative, aj1 appropriate for age. Pain: Denies pain. Neuro: Level of Consciousness is awake, alert, obeys commands, Speech is normal. Cardiovascular: Patient's skin is warm and dry. Respiratory: Airway is patent Respiratory effort is even, unlabored, Respiratory pattern is regular, symmetrical. GI: Reports vomiting. Derm: Skin is pink, warm \\T\\ dry. normal. 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 - Social history:: Smoking status: Patient/guardian denies using tobacco. - Ebola Screening: : Patient denies travel to an Ebola-affected area in the 21 days before illness onset. Screenin:05 Abuse screen: Denies threats or abuse. Nutritional screening: No deficits noted. mb3 Tuberculosis screening: No symptoms or risk factors identified. Fall Risk None identified. Assessment: 16:04 General: Appears in no apparent distress. comfortable, Behavior is calm, cooperative, mb3 appropriate for age. Pain: Denies pain. Neuro: No deficits noted. Cardiovascular: No deficits noted. Respiratory: No deficits noted. Airway is patent Respiratory effort is even, unlabored, Respiratory pattern is regular, symmetrical. GI: Abdomen is flat, Bowel sounds present X 4 quads. Abd is soft and non tender X 4 quads. Reports nausea. : No signs and/or symptoms were reported regarding the genitourinary system. Urine is clear. EENT: No signs and/or symptoms were reported regarding the EENT system. Derm: No deficits noted. No signs and/or symptoms reported regarding the dermatologic system. Musculoskeletal: No deficits noted. No signs and/or symptoms reported regarding the musculoskeletal system. Vital Signs: 15:04 BP 135 / 99; Pulse 82; Resp 18; Temp 98.4(TE); Pulse Ox 99% on R/A; Weight 61.23 kg aj1 (R); Height 5 ft. 1 in. (154.94 cm) (R); Pain 0/10; 16:02 BP 122 / 90 Supine; Pulse 75; Resp 16; Pulse Ox 100% on R/A; mb3 16:02 BP 124 / 83 Sitting; Pulse 73; Resp 16; Pulse Ox 100% on R/A; mb3 16:02 BP 123 / 92 Standing; Pulse 75; Resp 16; Pulse Ox 100% on R/A; mb3 15:04 Body Mass Index 25.51 (61.23 kg, 154.94 cm) aj1 ED Course: 14:57 Patient arrived in ED. as 15:04 Triage completed. aj1 15:04 Arm band placed on Patient placed in waiting room, Patient notified of wait time. aj1 15:13 Jan Vela PA is PHCP. cp 15:14 Jan Perry MD is Attending Physician. cp 15:29 León Thorne, VALENTINO is Primary Nurse. mb3 16:05 No provider procedures requiring assistance completed. mb3 16:08 Patient has correct armband on for positive identification. Bed in low position. Call mb3 light in reach. 16:19 Patient did not have IV access during this emergency room visit. mb3 Administered Medications: 15:32 Drug: Pepcid 20 mg Route: PO; mb3 16:18 Follow up: Response: No adverse reaction mb3 15:33 Drug: Zofran 4 mg Route: PO; mb3 16:18 Follow up: Response: No adverse reaction mb3 Outcome: 16:13 Discharge ordered by . nancy 16:19 Discharged to home ambulatory. mb3 16:19 Condition: stable 16:19 Discharge instructions given to patient, Instructed on discharge instructions, follow up and referral plans. medication usage, Demonstrated understanding of instructions, follow-up care, medications, Prescriptions given X 1. 16:32 Patient left the ED. mb3 Signatures: Rina Kevin, RN RN aj1 Viktoria Tan Corey, PA PA León Arreaga, RN RN mb3
--- NOTE | 2018-03-01 16:14 | EDPHYS ---
Physician Documentation [facility] Name: Shani Pat Age: 32 yrs Sex: Female : 1985 Arrival Date: 03/01/2018 Time: 14:57 Bed 23 Private MD: ED Physician Jan Perry HPI: 03/01 15:15 This 32 yrs old Female presents to ER via Ambulatory with complaints of cp Nausea/Vomiting. 15:15 The patient presents to the emergency department with nausea, that is mild, vomiting, cp that is intermittent, diarrhea, 1 times today. Onset: The symptoms/episode began/occurred last night. Possible causes: unknown. Associated signs and symptoms: Pertinent negatives: abdominal pain, constipation, dysuria, fever, GI bleeding. Severity of symptoms: in the emergency department the symptoms have improved mildly. 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 - Social history:: Smoking status: Patient/guardian denies using tobacco. - Ebola Screening: : Patient denies travel to an Ebola-affected area in the 21 days before illness onset. ROS: 15:20 Constitutional: Negative for body aches, chills, fever. cp 15:20 Eyes: Negative for injury, pain, redness, and discharge. cp 15:20 ENT: Negative for drainage from ear(s), ear pain, sore throat, difficulty swallowing, difficulty handling secretions. 15:20 Cardiovascular: Negative for chest pain, edema, palpitations. 15:20 Respiratory: Negative for cough, shortness of breath, wheezing. 15:20 Abdomen/GI: Positive for nausea and vomiting, Negative for abdominal pain, diarrhea, constipation, black/tarry stool, rectal bleeding. 15:20 Back: Negative for pain at rest, pain with movement, radiated pain. 15:20 : Negative for urinary symptoms. 15:20 Skin: Negative for cellulitis, rash. 15:20 Neuro: Negative for altered mental status, dizziness, headache, weakness. 15:20 All other systems are negative. Exam: 15:28 Head/Face: Normocephalic, atraumatic. cp 15:28 Constitutional: The patient appears in no acute distress, alert, awake, non-toxic, well developed, well nourished. 15:28 Eyes: Periorbital structures: appear normal, Conjunctiva: normal, no exudate, no injection, Sclera: no appreciated abnormality, Lids and lashes: appear normal, bilaterally. 15:28 ENT: External ear(s): are unremarkable, Nose: is normal, Mouth: is normal, Posterior pharynx: is normal, airway is patent, no erythema, no exudate. 15:28 Neck: ROM/movement: is normal, is supple, without pain, no range of motions limitations, no nuchal rigidity. 15:28 Chest/axilla: Inspection: normal, Palpation: is normal, no crepitus, no tenderness. 15:28 Cardiovascular: Rate: normal, Rhythm: regular. 15:28 Respiratory: the patient does not display signs of respiratory distress, Respirations: normal, no use of accessory muscles, no retractions, no splinting, no tachypnea, labored breathing, is not present, Breath sounds: are clear throughout, no decreased breath sounds, no stridor, no wheezing. 15:28 Abdomen/GI: Inspection: abdomen appears normal, Bowel sounds: active, all quadrants, Palpation: abdomen is soft and non-tender, in all quadrants, rebound tenderness, is not appreciated, involuntary guarding, is not appreciated. 15:28 Back: pain, is absent. 15:28 Skin: cellulitis, is not appreciated, no rash present. Vital Signs: 15:04 BP 135 / 99; Pulse 82; Resp 18; Temp 98.4(TE); Pulse Ox 99% on R/A; Weight 61.23 kg aj1 (R); Height 5 ft. 1 in. (154.94 cm) (R); Pain 0/10; 16:02 BP 122 / 90 Supine; Pulse 75; Resp 16; Pulse Ox 100% on R/A; mb3 16:02 BP 124 / 83 Sitting; Pulse 73; Resp 16; Pulse Ox 100% on R/A; mb3 16:02 BP 123 / 92 Standing; Pulse 75; Resp 16; Pulse Ox 100% on R/A; mb3 15:04 Body Mass Index 25.51 (61.23 kg, 154.94 cm) aj1 MDM: 15:14 Patient medically screened. 15:30 Differential diagnosis: gastritis, cholecystitis, pancreatitis, viral gastroenteritis, cp gastroenteritis. 16:10 Data reviewed: vital signs, nurses notes, lab test result(s), and as a result, I will cp discharge patient. 16:10 Counseling: I had a detailed discussion with the patient and/or guardian regarding: the cp historical points, exam findings, and any diagnostic results supporting the discharge/admit diagnosis, lab results, to return to the emergency department if symptoms worsen or persist or if there are any questions or concerns that arise at home. Response to treatment: the patient's symptoms have markedly improved after treatment, No vomiting observed in ED, and as a result, I will discharge patient. 03/01 15:14 Order name: Urine Dipstick-Ancillary (obtain specimen); Complete Time: 15:36 03/01 15:14 Order name: Urine Test (obtain specimen); Complete Time: 15:37 03/01 15:18 Order name: IV Saline Lock 03/01 15:41 Order name: Urine Dipstick--Ancillary (enter results); Complete Time: 16:06 03/01 16:06 Interpretation: Normal except: UPROT 1+. 03/01 15:41 Order name: Urine --Ancillary (enter results); Complete Time: 16:06 03/01 16:07 Interpretation: Reviewed. 03/01 15:18 Order name: Labs collected and sent 03/01 15:24 Order name: PO challenge; Complete Time: 16:05 03/01 15:27 Order name: Orthostatics; Complete Time: 16:05 cp Administered Medications: 15:32 Drug: Pepcid 20 mg Route: PO; mb3 16:18 Follow up: Response: No adverse reaction mb3 15:33 Drug: Zofran 4 mg Route: PO; mb3 16:18 Follow up: Response: No adverse reaction mb3 Disposition: 03/01/18 16:13 Discharged to Home. Impression: Nausea and vomiting. - Condition is Stable. - Discharge Instructions: Dehydration, Adult, Nausea and Vomiting, Adult. - Prescriptions for promethazine 25 mg Oral Tablet - take 1 tablet by ORAL route every 6 hours As needed; 20 tablet. - Medication Reconciliation Form, Thank You Letter, Antibiotic Education, Prescription Opioid Use form. - Follow up: Private Physician; When: 1 - 2 days; Reason: Recheck today's complaints. - Problem is new. - Symptoms have improved. Addendum: 03/04/2018 10:21 Co-signature as Attending Physician, Jan Perry MD I agree with the assessment and c harris plan of care. Signatures: Dispatcher [employer] EDPR Rina Kevin RN RN aj1 Jan Perry MD MD cha Page, Corey, PA PA cp León Thorne, RN RN mb3 Corrections: (The following items were deleted from the chart) 03/01 16:10 15:18 CBC+H.LAB.BRZ ordered. EDMS EDMS 16:10 15:18 Creatinine for Radiology+C.LAB.BRZ ordered. EDMS EDMS 16:10 15:18 UA MICROSCOPIC+U.LAB.BRZ ordered. EDMS EDMS 16:11 15:18 AMYLASE, SERUM+C.LAB.BRZ ordered. EDMS EDMS 16:11 15:18 BASIC METABOLIC PANEL+C.LAB.BRZ ordered. EDMS EDMS 16:11 15:18 HEPATIC FUNCTION+C.LAB.BRZ ordered. EDMS EDMS 16:11 15:18 LIPASE+C.LAB.BRZ ordered. EDPR EDMS 16:32 16:13 03/01/2018 16:13 Discharged to Home. Impression: Nausea and vomiting. Condition mb3 is Stable. Forms are Medication Reconciliation Form, Thank You Letter, Antibiotic Education, Prescription Opioid Use. Follow up: Private Physician; When: 1 - 2 days; Reason: Recheck today's complaints. Problem is new. Symptoms have improved. cp
== END 2018-03-01 16:32 | disposition home or self-care (01) ==
LOC: ER 14:56
DX: R11.2 Nausea with vomiting, unspecified (principal)
CPT/HCPCS: 81003; 81025; 99283

== ENCOUNTER 2018-03-29 23:41 | Emergency (ER) | payer SELFPAY ==
[2018-03-30] MEDS ORDERED: ONDANSETRON 4 MG (ODT) TAB ONE (00:26)
--- NOTE | 2018-03-30 00:49 | ER ---
Nurse's Notes 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 Denies pain. Transition of care: patient was not received from another setting of care. Onset of symptoms was March 29, 2018 at 20:00. Risk Assessment: Do you want to hurt yourself or someone else? Patient reports no desire to harm self or others. Initial Sepsis Screen: Does the patient meet any 2 criteria? No. Patient's initial sepsis screen is negative. Does the patient have a suspected source of infection? No. Patient's initial sepsis screen is negative. Care prior to arrival: None. 23:50 Method Of Arrival: Ambulatory tl2 23:50 Acuity: CECI 3 tl2 Triage Assessment: 23:51 General: Appears in no apparent distress. uncomfortable, Behavior is cooperative, tl2 appropriate for age, anxious. Pain: Denies pain. GI: Reports nausea, vomiting. 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 - Social history:: Smoking status: Patient/guardian denies using tobacco. - Ebola Screening: : No symptoms or risks identified at this time. Screenin:52 Abuse screen: Denies threats or abuse. Nutritional screening: No deficits noted. tl2 Tuberculosis screening: No symptoms or risk factors identified. Fall Risk None identified. Assessment: 23:56 General: Appears in no apparent distress. comfortable, Behavior is calm, cooperative, ao appropriate for age. Pain: Denies pain. Neuro: Level of Consciousness is awake, alert, obeys commands, Oriented to person, place, time, situation, Appropriate for age Moves all extremities. Full function Speech is normal, Facial symmetry appears normal, Pupils are PERRLA. Cardiovascular: Capillary refill < 3 seconds Patient's skin is warm and dry. Respiratory: Airway is patent Respiratory effort is even, unlabored, Respiratory pattern is regular, symmetrical. GI: Abdomen is non-distended. : No signs and/or symptoms were reported regarding the genitourinary system. EENT: No signs and/or symptoms were reported regarding the EENT system. Derm: No signs and/or symptoms reported regarding the dermatologic system. Skin is intact, Skin is dry, Skin is pink, warm \T\ dry. normal, Skin temperature is warm. Musculoskeletal: Circulation, motion, and sensation intact. Range of motion:. Vital Signs: 23:51 BP 141 / 101; Pulse 82; Resp 20; Temp 98.4(O); Pulse Ox 98% on R/A; Weight 61.23 kg; tl2 Height 5 ft. 1 in. (154.94 cm); Pain 0/10; 03/30 00:31 BP 136 / 96 LA Supine (auto/reg); Pulse 71; Resp 18; Pulse Ox 100% on R/A; cc 00:31 BP 138 / 98 LA Sitting (auto/reg); Pulse 70; Resp 18; Pulse Ox 100% on R/A; cc 00:31 BP 137 / 101 LA Standing (auto/reg); Pulse 82; Resp 18; Pulse Ox 100% on R/A; cc 03/29 23:51 Body Mass Index 25.51 (61.23 kg, 154.94 cm) tl2 ED Course: 03/29 23:44 Patient arrived in ED. al2 23:51 Triage completed. tl2 23:51 Jan Vela PA is PHCP. cp 23:51 Arm band placed on right wrist. tl2 23:52 Jan Perry MD is Attending Physician. cp 23:52 Patient has correct armband on for positive identification. Bed in low position. Call tl2 light in reach. Side rails up X 1. 23:56 Petr Holt, RN is Primary Nurse. ao 03/30 01:02 No provider procedures requiring assistance completed. Patient did not have IV access ao during this emergency room visit. Administered Medications: 00:29 Drug: Zofran 4 mg Route: PO; ao 02:46 Follow up: Response: No adverse reaction ao Outcome: 00:48 Discharge ordered by . nancy 01:03 Discharged to home ambulatory. ao 01:03 Condition: stable 01:03 Discharge instructions given to patient, Instructed on discharge instructions, follow up and referral plans. Demonstrated understanding of instructions, follow-up care, medications, Prescriptions given X 2. 01:04 Patient left the ED. ao Signatures: Shavon Crawley Corey, PA PA cp Ortiz, Alex RN RN Tram Barth RN RN tl2 Estee, Tracey marks
--- NOTE | 2018-03-30 00:49 | EDPHYS ---
Physician Documentation [facility] Name: Shani Pat Age: 32 yrs Sex: Female : 1985 Arrival Date: 03/29/2018 Time: 23:44 Bed 15 Private MD: ED Physician Jan Perry HPI: 03/30 00:06 This 32 yrs old Female presents to ER via Ambulatory with complaints of cp Vomiting. 00:06 The patient presents to the emergency department with nausea, that is moderate, cp vomiting, that is continuous. Onset: The symptoms/episode began/occurred 3 hour(s) ago. 00:06 Possible causes: unknown. Associated signs and symptoms: Pertinent negatives: abdominal cp pain, diarrhea, fever, GI bleeding. 00:06 Severity of symptoms: in the emergency department the symptoms are unchanged. 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 - Social history:: Smoking status: Patient/guardian denies using tobacco. - Ebola Screening: : No symptoms or risks identified at this time. ROS: 03/30 00:10 Constitutional: Positive for poor PO intake, Negative for body aches, chills, fever. cp 00:10 Eyes: Negative for injury, pain, redness, and discharge. cp 00:10 ENT: Negative for drainage from ear(s), ear pain, sore throat, difficulty swallowing, difficulty handling secretions. 00:10 Cardiovascular: Negative for chest pain, palpitations. 00:10 Respiratory: Negative for cough, shortness of breath, wheezing. 00:10 Abdomen/GI: Positive for nausea and vomiting, Negative for diarrhea, constipation, hematemesis, black/tarry stool, rectal bleeding. 00:10 Skin: Negative for cellulitis, rash. 00:10 Neuro: Negative for altered mental status, headache, syncope, near syncope, weakness. 00:10 All other systems are negative. Exam: 03/29 00:15 Constitutional: The patient appears in no acute distress, alert, awake, non-toxic, well cp developed, well nourished. 00:15 Head/Face: Normocephalic, atraumatic. cp 00:15 Eyes: Periorbital structures: appear normal, Pupils: equal, round, and reactive to light and accomodation, Extraocular movements: intact throughout, Conjunctiva: normal, no exudate, no injection, Sclera: no appreciated abnormality, Lids and lashes: appear normal, bilaterally. 00:15 ENT: External ear(s): are unremarkable, Ear canal(s): are normal, clear, TM's: bulging, is not appreciated, bilaterally, dullness, bilaterally, erythema, is not appreciated, bilaterally, Nose: is normal, Mouth: Lips: moist, Oral mucosa: pink and intact, moist, Posterior pharynx: is normal, airway is patent, no erythema, no exudate. 00:15 Neck: ROM/movement: is normal, is supple, without pain, no range of motions limitations, no nuchal rigidity. 00:15 Chest/axilla: Inspection: normal, Palpation: is normal, no crepitus, no tenderness. 00:15 Cardiovascular: Rate: normal, Rhythm: regular. 00:15 Respiratory: the patient does not display signs of respiratory distress, Respirations: normal, no use of accessory muscles, no retractions, no splinting, no tachypnea, labored breathing, is not present, Breath sounds: are clear throughout, no decreased breath sounds, no stridor, no wheezing. 00:15 Abdomen/GI: Inspection: abdomen appears normal, Bowel sounds: active, all quadrants, Palpation: abdomen is soft and non-tender, in all quadrants, rebound tenderness, is not appreciated, voluntary guarding, is not appreciated, involuntary guarding, is not appreciated. 00:15 Back: CVA tenderness, is absent. 00:15 Skin: cellulitis, is not appreciated, no rash present. Vital Signs: 23:51 BP 141 / 101; Pulse 82; Resp 20; Temp 98.4(O); Pulse Ox 98% on R/A; Weight 61.23 kg; tl2 Height 5 ft. 1 in. (154.94 cm); Pain 0/10; 08 00:31 BP 136 / 96 LA Supine (auto/reg); Pulse 71; Resp 18; Pulse Ox 100% on R/A; cc 00:31 BP 138 / 98 LA Sitting (auto/reg); Pulse 70; Resp 18; Pulse Ox 100% on R/A; cc 00:31 BP 137 / 101 LA Standing (auto/reg); Pulse 82; Resp 18; Pulse Ox 100% on R/A; cc 03/29 23:51 Body Mass Index 25.51 (61.23 kg, 154.94 cm) tl2 MDM: 03/29 23:52 Patient medically screened. cp 03/30 00:25 Differential diagnosis: gastritis, cholecystitis, pancreatitis, appendicitis, viral cp gastroenteritis, gastroenteritis. 00:47 Data reviewed: vital signs, nurses notes. cp 00:47 Counseling: I had a detailed discussion with the patient and/or guardian regarding: the cp historical points, exam findings, and any diagnostic results supporting the discharge/admit diagnosis, to return to the emergency department if symptoms worsen or persist or if there are any questions or concerns that arise at home. Response to treatment: the patient's symptoms have markedly improved after treatment, VSS. Nausea improved and vomiting resolved, and as a result, I will discharge patient. 03/30 00:27 Order name: Urine Dipstick--Ancillary (enter results) [facility] 03/30 00:27 Order name: Urine --Ancillary (enter results) [facility] 03/30 00:07 Order name: Urine Dipstick-Ancillary (obtain specimen); Complete Time: 00:18 cp 03/30 00:07 Order name: Urine Test (obtain specimen); Complete Time: 00:18 cp 03/30 00:27 Order name: Urine Dipstick-Ancillary [facility] 03/30 00:08 Order name: Orthostatics; Complete Time: 00:30 cp 03/30 00:08 Order name: PO challenge; Complete Time: 00:35 cp Administered Medications: 00:29 Drug: Zofran 4 mg Route: PO; ao 02:46 Follow up: Response: No adverse reaction ao Disposition: 03/30/18 00:48 Discharged to Home. Impression: Nausea and vomiting. - Condition is Stable. - Discharge Instructions: Nausea and Vomiting, Adult. - Prescriptions for Pepcid 20 mg Oral Tablet - take 1 tablet by ORAL route every 12 hours for 5 days; 10 tablet. Zofran 4 mg Oral Tablet - take 1 tablet by ORAL route every 12 hours As needed; 20 tablet. - Medication Reconciliation Form, Thank You Letter, Antibiotic Education, Prescription Opioid Use, Work release form form. - Follow up: Private Physician; When: 1 - 2 days; Reason: Recheck today's complaints. - Problem is new. - Symptoms have improved. Addendum: 04/01/2018 06:32 Co-signature as Attending Physician, Jan Perry MD I agree with the assessment and c harris plan of care. Signatures: Dispatcher [employer] EDOK Jan Perry MD MD cha Page, Corey, PA PA cp Petr Holt, RN RN ao Tram Cordova RN RN tl2 Corrections: (The following items were deleted from the chart) 03/30 01:04 00:48 03/30/2018 00:48 Discharged to Home. Impression: Nausea and vomiting. Condition ao is Stable. Forms are Medication Reconciliation Form, Thank You Letter, Antibiotic Education, Prescription Opioid Use. Follow up: Private Physician; When: 1 - 2 days; Reason: Recheck today's complaints. Problem is new. Symptoms have improved. cp
[2018-03-30 01:35] LABS: Urine Blood TRACE (NEG); Urine Glucose NEGATIVE (NEG); Urine Protein NEGATIVE (NEG)
== END 2018-03-30 01:04 | disposition home or self-care (01) ==
LOC: ER 23:41
DX: R11.2 Nausea with vomiting, unspecified (principal)
CPT/HCPCS: 81003; 81025; 99283

== ENCOUNTER 2018-04-12 16:44 | Emergency (ER) | payer SELFPAY ==
--- NOTE | 2018-04-12 17:07 | ER ---
Nurse's Notes [facility] Name: Shani Pat Age: 32 yrs Sex: Female : 1985 Arrival Date: 04/12/2018 Time: 16:45 Bed 18 Private MD: Diagnosis: Urinary tract infection, site not specified Presentation: 04/12 16:54 Presenting complaint: Patient states: Urinary urgency and frequency for 2 weeks. aj Transition of care: patient was not received from another setting of care. Onset of symptoms was March 25, 2018. Risk Assessment: Do you want to hurt yourself or someone else? Patient reports no desire to harm self or others. Initial Sepsis Screen: Does the patient meet any 2 criteria? No. Patient's initial sepsis screen is negative. Does the patient have a suspected source of infection? No. Patient's initial sepsis screen is negative. Care prior to arrival: None. 16:54 Method Of Arrival: Ambulatory aj 16:54 Acuity: CECI 4 aj Triage Assessment: 16:55 General: Appears in no apparent distress. comfortable, Behavior is calm, cooperative, aj appropriate for age. Pain: Denies pain. Neuro: Level of Consciousness is awake, alert, obeys commands, Oriented to person, place, time, situation, Appropriate for age. Respiratory: Airway is patent Respiratory effort is even, unlabored, Respiratory pattern is regular, symmetrical. : Reports urgency, urinary frequency. Derm: Skin is intact, is healthy with good turgor, Skin is pink, warm \T\ dry. normal. 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 - Social history:: Smoking status: Patient/guardian denies using tobacco. - Ebola Screening: : Patient negative for fever greater than or equal to 101.5 degrees Fahrenheit, and additional compatible Ebola Virus Disease symptoms Patient denies exposure to infectious person Patient denies travel to an Ebola-affected area in the 21 days before illness onset No symptoms or risks identified at this time. Screenin:00 Abuse screen: Denies threats or abuse. Nutritional screening: No deficits noted. fc Tuberculosis screening: Fall Risk None identified. Assessment: 17:00 General: Appears comfortable, slender, Behavior is calm, cooperative, appropriate for fc age. Pain: Denies pain. Neuro: Level of Consciousness is awake, alert, obeys commands, Oriented to person, place, time, situation. Cardiovascular: No deficits noted. Respiratory: No deficits noted. GI: No deficits noted. : Reports urgency, urinary frequency. EENT: No deficits noted. Derm: Skin is pink, warm \T\ dry. Musculoskeletal: Circulation, motion, and sensation intact. Capillary refill < 3 seconds, Range of motion: intact in all extremities. 17:08 Reassessment: No changes from previously documented assessment. Patient and/or family fc updated on plan of care and expected duration. Pain level reassessed. Patient is alert, oriented x 3, equal unlabored respirations, skin warm/dry/pink. Janice CHIEF KNOWLEDGE OFFICER in to discussed urine findings with pt. 17:31 Reassessment: new phone number is . iw Vital Signs: 16:55 BP 138 / 93; Pulse 88; Resp 16; Temp 98.4; Pulse Ox 98% on R/A; Weight 61.23 kg; Height aj 5 ft. 1 in. (154.94 cm); 16:55 Body Mass Index 25.51 (61.23 kg, 154.94 cm) aj ED Course: 16:45 Patient arrived in ED. as 16:50 Janice Baer FNP-C [facility]. kb 16:50 Gilberto Alexander MD is Attending Physician. kb 16:55 Triage completed. aj 16:55 Arm band placed on right wrist. Patient placed in an exam room. aj 17:00 Patient has correct armband on for positive identification. Bed in low position. Call fc light in reach. 17:08 Corrina Downey, RN is Primary Nurse. iw 17:11 No provider procedures requiring assistance completed. Patient did not have IV access fc during this emergency room visit. Administered Medications: 17:15 Drug: Macrobid 100 mg Route: PO; fc Outcome: 17:06 Discharge ordered by . kb 17:29 Discharged to home ambulatory. iw 17:29 Condition: good 17:29 Discharge instructions given to patient, Instructed on discharge instructions, follow up and referral plans. medication usage, Demonstrated understanding of instructions, follow-up care, medications, Prescriptions given X 1. 17:30 Patient left the ED. iw Signatures: Janice Baer, GALINDO CALDERONP-Sindhu Suh RN RN Jessie Ochoa RN RN Viktoria Patel Irene, RN RN iw Corrections: (The following items were deleted from the chart) 16:57 16:55 BP 138 / 103; Pulse 88bpm; Resp 16bpm; Pulse Ox 98%; Temp 98.4F; 61.23 kg; Height aj 5 ft. 1 in.; BMI: 25.5; aj
--- NOTE | 2018-04-12 17:07 | EDPHYS ---
Physician Documentation [facility] Name: Shani Pat Age: 32 yrs Sex: Female : 1985 Arrival Date: 04/12/2018 Time: 16:45 Bed 18 Private MD: ED Physician Gilberto Alexander HPI: 04/12 17:05 This 32 yrs old Female presents to ER via Ambulatory with complaints of kb Urinary Frequency, Pain With Urination - x2 wks. 17:05 The patient presents with urinary symptoms, frequency. Onset: The symptoms/episode kb began/occurred 2 week(s) ago. Modifying factors: The symptoms are alleviated by nothing, the symptoms are aggravated by urinating. Associated signs and symptoms: Pertinent positives: urinary frequency. Severity of symptoms: At their worst the symptoms were moderate, in the emergency department the symptoms are unchanged. The patient has not experienced similar symptoms in the past. The patient has not recently seen a physician. 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 - Social history:: Smoking status: Patient/guardian denies using tobacco. - Ebola Screening: : Patient negative for fever greater than or equal to 101.5 degrees Fahrenheit, and additional compatible Ebola Virus Disease symptoms Patient denies exposure to infectious person Patient denies travel to an Ebola-affected area in the 21 days before illness onset No symptoms or risks identified at this time. ROS: 17:05 Constitutional: Negative for fever, chills, and weight loss, Cardiovascular: Negative kb for chest pain, palpitations, and edema, Respiratory: Negative for shortness of breath, cough, wheezing, and pleuritic chest pain, Abdomen/GI: Negative for abdominal pain, nausea, vomiting, diarrhea, and constipation, MS/Extremity: Negative for injury and deformity, Skin: Negative for injury, rash, and discoloration, Neuro: Negative for headache, weakness, numbness, tingling, and seizure. 17:05 : Positive for urinary frequency. Exam: 17:05 Constitutional: This is a well developed, well nourished patient who is awake, alert, kb and in no acute distress. Head/Face: Normocephalic, atraumatic. Chest/axilla: Normal chest wall appearance and motion. Nontender with no deformity. No lesions are appreciated. Cardiovascular: Regular rate and rhythm with a normal S1 and S2. No gallops, murmurs, or rubs. Normal PMI, no JVD. No pulse deficits. Respiratory: Lungs have equal breath sounds bilaterally, clear to auscultation and percussion. No rales, rhonchi or wheezes noted. No increased work of breathing, no retractions or nasal flaring. Abdomen/GI: Soft, non-tender, with normal bowel sounds. No distension or tympany. No guarding or rebound. No evidence of tenderness throughout. Back: No spinal tenderness. No costovertebral tenderness. Full range of motion. Skin: Warm, dry with normal turgor. Normal color with no rashes, no lesions, and no evidence of cellulitis. MS/ Extremity: Pulses equal, no cyanosis. Neurovascular intact. Full, normal range of motion. Neuro: Awake and alert, GCS 15, oriented to person, place, time, and situation. Cranial nerves II-XII grossly intact. Motor strength 5/5 in all extremities. Sensory grossly intact. Cerebellar exam normal. Normal gait. Vital Signs: 16:55 BP 138 / 93; Pulse 88; Resp 16; Temp 98.4; Pulse Ox 98% on R/A; Weight 61.23 kg; Height aj 5 ft. 1 in. (154.94 cm); 16:55 Body Mass Index 25.51 (61.23 kg, 154.94 cm) aj MDM: 16:51 Patient medically screened. kb 17:05 Data reviewed: vital signs, nurses notes. Data interpreted: Pulse oximetry: on room air kb is 98 %. Interpretation: normal. Counseling: I had a detailed discussion with the patient and/or guardian regarding: the historical points, exam findings, and any diagnostic results supporting the discharge/admit diagnosis, lab results, the need for outpatient follow up, a family practitioner, to return to the emergency department if symptoms worsen or persist or if there are any questions or concerns that arise at home. 04/12 17:04 Order name: Urine Dipstick--Ancillary (enter results); Complete Time: 17:14 kb 04/12 17:04 Order name: Urine --Ancillary (enter results); Complete Time: 17:14 kb 04/12 17:04 Order name: Urine Microscopic Only kb 04/12 17:04 Order name: Urine Culture Administered Medications: 17:15 Drug: Macrobid 100 mg Route: PO; fc Disposition: 18:16 Co-signature as Attending Physician, Gilberto Alexander MD I agree with the assessment and kdr plan of care. Disposition: 04/12/18 17:06 Discharged to Home. Impression: Urinary tract infection, site not specified. - Condition is Stable. - Discharge Instructions: Urinary Tract Infection, Adult, [id number]. - Prescriptions for Macrobid 100 mg Oral Capsule - take 1 capsule by ORAL route every 12 hours for 7 days; 14 capsule. - Medication Reconciliation Form, Thank You Letter, Antibiotic Education, Prescription Opioid Use, Work release form form. - Follow up: Emergency Department; When: As needed; Reason: Worsening of condition. Follow up: Private Physician; When: 2 - 3 days; Reason: Recheck today's complaints, Continuance of care, Re-evaluation by your physician. Signatures: Dispatcher [employer] Janice Dunaway, TEAM DRIVER-C TEAM DRIVER-Ckb Sindhu Valencia RN RN Gilberto Carolina MD MD [facility] Jessie Rowley RN RN Corrina Lopez RN RN iw Corrections: (The following items were deleted from the chart) 17:30 17:06 04/12/2018 17:06 Discharged to Home. Impression: Urinary tract infection, site iw not specified. Condition is Stable. Forms are Medication Reconciliation Form, Thank You Letter, Antibiotic Education, Prescription Opioid Use. Follow up: Emergency Department; When: As needed; Reason: Worsening of condition. Follow up: Private Physician; When: 2 - 3 days; Reason: Recheck today's complaints, Continuance of care, Re-evaluation by your physician. kb
[2018-04-12 17:11] LABS: Urine Blood 2+ (NEG); Urine Glucose NEGATIVE (NEG); Urine Protein TRACE (NEG); Urine pH 7.5 (5.0-7.0)
[2018-04-12] MEDS ORDERED: NITROFURAN MACRO 100 MG CAP PO ONE (17:21)
[2018-04-12 18:10] LABS: Urine Bacteria 20-50 /HPF (<20)
[2018-04-12 18:18] LABS: Urine Culture Reflex Order NOT NEEDED
== END 2018-04-12 17:30 | disposition home or self-care (01) ==
LOC: ER 16:44
DX: N39.0 Urinary tract infection, site not specified (principal)
CPT/HCPCS: 81003; 81015; 81025; 87086; 87088; 99283

== ENCOUNTER 2018-08-09 09:07 | Emergency (ER) | payer SELFPAY ==
--- NOTE | 2018-08-09 10:33 | EDPHYS ---
Physician Documentation [facility] Name: Shani Pat Age: 33 yrs Sex: Female : 1985 Arrival Date: 08/09/2018 Time: 09:09 Bed 7 Private MD: ED Physician Gilberto Alexander HPI: 08/09 09:29 This 33 yrs old Female presents to ER via Unassigned with complaints of Wrist kdr Injury. 09:29 The patient or guardian reports a contusion, decreased range of motion, injury, pain, kdr swelling, tenderness. The complaints affect the right wrist diffusely. Context: The problem was sustained at home, resulted from a fall, while walking, Fell walking up stairs in the rain. Onset: The symptoms/episode began/occurred suddenly, 2 day(s) ago. Modifying factors: The symptoms are alleviated by nothing, the symptoms are aggravated by movement. Associated signs and symptoms: The patient has no apparent associated signs or symptoms. Compartment Syndrome negative for numbness, tingling. The patient has not experienced similar symptoms in the past. The patient has not recently seen a physician. 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 - Social history:: Smoking status: Patient/guardian denies using tobacco. - Ebola Screening: : Patient negative for fever greater than or equal to 101.5 degrees Fahrenheit, and additional compatible Ebola Virus Disease symptoms Patient denies exposure to infectious person Patient denies travel to an Ebola-affected area in the 21 days before illness onset No symptoms or risks identified at this time. ROS: 09:29 Constitutional: Negative for fever, chills, and weight loss, Eyes: Negative for injury, kdr pain, redness, and discharge, Neck: Negative for injury, pain, and swelling, Cardiovascular: Negative for chest pain, palpitations, and edema, Respiratory: Negative for shortness of breath, cough, wheezing, and pleuritic chest pain, Abdomen/GI: Negative for abdominal pain, nausea, vomiting, diarrhea, and constipation, Back: Negative for injury and pain, : Negative for injury, bleeding, discharge, and swelling, Skin: Negative for injury, rash, and discoloration, Neuro: Negative for headache, weakness, numbness, tingling, and seizure activity. Psych: Negative for depression, anxiety, suicide ideation, homicidal ideation, and hallucinations, Allergy/Immunology: Negative for hives, rash, and allergies, Endocrine: Negative for neck swelling, polydipsia, polyuria, polyphagia, and marked weight changes, Hematologic/Lymphatic: Negative for swollen nodes, abnormal bleeding, and unusual bruising. 09:29 MS/extremity: Positive for injury or acute deformity, contusion, decreased range of motion, ecchymosis, pain, swelling, tenderness, warmth. Exam: 09:29 Constitutional: This is a well developed, well nourished patient who is awake, alert, kdr and in no acute distress. 09:29 Musculoskeletal/extremity: Extremities: grossly normal except: noted in the right wrist: decreased ROM, ecchymosis, pain, swelling, tenderness. Vital Signs: 09:23 BP 135 / 84; Pulse 96; Resp 16; Temp 98.2; Pulse Ox 99% on R/A; Weight 61.23 kg; Height ch 5 ft. 1 in. (154.94 cm); Pain 7/10; 11:00 BP 123 / 59; Pulse 71; Resp 12; Temp 98.3; Pulse Ox 99% on R/A; Pain 4/10; ch 09:23 Body Mass Index 25.51 (61.23 kg, 154.94 cm) MDM: 10:30 Data reviewed: vital signs, nurses notes, lab test result(s), radiologic studies. kdr Counseling: I had a detailed discussion with the patient and/or guardian regarding: the historical points, exam findings, and any diagnostic results supporting the discharge/admit diagnosis, radiology results, the need for outpatient follow up. ED course: The patient was stable in the ED. 10:32 Patient medically screened. [facility] 08/09 09:21 Order name: XRAY Wrist RIGHT 3 view 08/09 10:34 Order name: Splint - Wrist; Complete Time: 10:56 [facility] 08/09 10:34 Order name: Mitchell wrap-joint: Right wrist; Complete Time: 10:56 [facility] 08/09 10:48 Order name: Sugar Tong Forearm Splint; Complete Time: 10:56 kdr Administered Medications: 10:51 Drug: [place] (7.5 mg-325 mg) 1 tabs Route: PO; 10:59 Follow up: Response: No adverse reaction; Marked relief of symptoms Disposition: 08/09/18 10:32 Discharged to Home. Impression: Nondisplaced impacted right radius fracture. - Condition is Stable. - Discharge Instructions: Wrist Fracture Treated With Immobilization, [id number], Wrist Pain, [id number]. - Prescriptions for Tramadol 50 mg Oral Tablet - take 1 tablet by ORAL route every 8 hours as needed; 16 tablet. - Medication Reconciliation Form, Thank You Letter, Prescription Opioid Use form. - Follow up: Luis Antonio Edmonds MD; When: 2 - 3 days; Reason: If symptoms return, Further diagnostic work-up, Recheck today's complaints, Continuance of care, Re-evaluation by your physician. - Problem is new. - Symptoms have improved. Signatures: Dispatcher [employer] EDMary Meza RN RN Gilberto Alexander MD MD kdr Corrections: (The following items were deleted from the chart) 11:02 10:32 08/09/2018 10:32 Discharged to Home. Impression: Nondisplaced impacted right ch radius fracture. Condition is Stable. Forms are Medication Reconciliation Form, Thank You Letter, Antibiotic Education, Prescription Opioid Use. Follow up: Luis Antonio Edmonds; When: 2 - 3 days; Reason: If symptoms return, Further diagnostic work-up, Recheck today's complaints, Continuance of care, Re-evaluation by your physician. Problem is new. Symptoms have improved. kdr
--- NOTE | 2018-08-09 10:33 | ER ---
Nurse's Notes [facility] Name: Shani Pat Age: 33 yrs Sex: Female : 1985 Arrival Date: 08/09/2018 Time: 09:09 Bed 7 Private MD: Diagnosis: Nondisplaced impacted right radius fracture Presentation: 08/09 09:18 Presenting complaint: Patient states: pt states she slipped and fell walking up the steps two days ago. states the pain to the R wrist is getting wrose. 09:19 Transition of care: patient was not received from another setting of care. Onset of symptoms was August 08, 2018 at 09:15. Risk Assessment: Do you want to hurt yourself or someone else? Patient reports no desire to harm self or others. Initial Sepsis Screen: Does the patient meet any 2 criteria? No. Patient's initial sepsis screen is negative. Does the patient have a suspected source of infection? No. Patient's initial sepsis screen is negative. Care prior to arrival: None. 09:53 Acuity: CECI 4 iw 11:01 Method Of Arrival: Ambulatory Triage Assessment: 09:23 General: Appears in no apparent distress. comfortable, Behavior is calm, cooperative, ch appropriate for age. Pain: Complains of pain in lateral aspect of right wrist, medial aspect of right wrist, dorsal aspect of right wrist and palmar aspect of right wrist Pain radiates to right arm Pain currently is 6 out of 10 on a pain scale. Neuro: No deficits noted. Respiratory: No deficits noted. Airway is patent Respiratory effort is even, unlabored. GI: No signs and/or symptoms were reported involving the gastrointestinal system. Derm: Skin is pink, warm \T\ dry. Musculoskeletal: Capillary refill < 3 seconds, in bilateral fingers. toes. Range of motion: limited in right wrist Swelling present in dorsal aspect of right wrist and palmar aspect of right wrist. Injury Description: fall, swelling and bruising to R wrist. 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 - Social history:: Smoking status: Patient/guardian denies using tobacco. - Ebola Screening: : Patient negative for fever greater than or equal to 101.5 degrees Fahrenheit, and additional compatible Ebola Virus Disease symptoms Patient denies exposure to infectious person Patient denies travel to an Ebola-affected area in the 21 days before illness onset No symptoms or risks identified at this time. Screenin:26 Abuse screen: Denies threats or abuse. Denies injuries from another. Nutritional screening: No deficits noted. Tuberculosis screening: No symptoms or risk factors identified. Fall Risk None identified. Assessment: 09:26 Reassessment: Patient appears in no apparent distress at this time. Patient and/or ch family updated on plan of care and expected duration. Pain level reassessed. Patient is alert, oriented x 3, equal unlabored respirations, skin warm/dry/pink. 10:52 Reassessment: Patient appears in no apparent distress at this time. No changes from previously documented assessment. Patient and/or family updated on plan of care and expected duration. Pain level reassessed. Patient is alert, oriented x 3, equal unlabored respirations, skin warm/dry/pink. 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 10:59 Reassessment: Patient appears in no apparent distress at this time. Patient and/or ch family updated on plan of care and expected duration. Pain level reassessed. Patient is alert, oriented x 3, equal unlabored respirations, skin warm/dry/pink. Patient states feeling better. Patient states symptoms have improved. Vital Signs: 09:23 BP 135 / 84; Pulse 96; Resp 16; Temp 98.2; Pulse Ox 99% on R/A; Weight 61.23 kg; Height 5 ft. 1 in. (154.94 cm); Pain 7/10; 11:00 BP 123 / 59; Pulse 71; Resp 12; Temp 98.3; Pulse Ox 99% on R/A; Pain 4/10; ch 09:23 Body Mass Index 25.51 (61.23 kg, 154.94 cm) ED Course: 09:09 Patient arrived in ED. mr 09:10 Mary Celis RN is Primary Nurse. ch 09:17 Gilberto Alexander MD is Attending Physician. kdr 09:23 Arm band placed on left wrist. Patient placed in an exam room, on a stretcher. ch 09:26 No apparent distress. Resting quietly. ch 09:26 Patient has correct armband on for positive identification. Bed in low position. Call light in reach. Side rails up X 1. 09:26 No provider procedures requiring assistance completed. Patient did not have IV access ch during this emergency room visit. 09:53 Triage completed. iw 10:05 X-ray completed. Portable x-ray completed in exam room. Patient tolerated procedure ka well. 10:05 XRAY Wrist RIGHT 3 view In Process Unspecified. EDMS 10:31 Luis Antonio Edmonds MD is Referral Physician. kdr 10:56 Orthoglass splint: Sugar tong splint applied on right arm. Radial pulse present and jb1 within normal limits before and after application of splint. Capillary refill was one second before and after application of splint. 11:00 Warm blanket given. ch 11:00 Sling applied to right arm. ch Administered Medications: 10:51 Drug: Wanda (7.5 mg-325 mg) 1 tabs Route: PO; ch 10:59 Follow up: Response: No adverse reaction; Marked relief of symptoms ch Outcome: 10:32 Discharge ordered by . kdr 11:00 Discharged to home ambulatory, with family. ch 11:00 Condition: stable 11:00 Discharge instructions given to patient, family, Instructed on discharge instructions, follow up and referral plans. medication usage, Demonstrated understanding of instructions, follow-up care, medications, Prescriptions given X 1. 11:02 Patient left the ED. Signatures: Dispatcher [employer] EDMS Humble Walker [email or web address] Mary Celis, RN RN Gilberto Alexander MD MD kdr Rivera, Mary mr Williams, Irene, RN RN Lindy Lance
[2018-08-09] MEDS ORDERED: HYDROCODONE/APAP 7.5/325 MG TAB ONE (11:04)
--- NOTE | 2018-08-09 11:11 | RAD REPORT ---
EXAM DESCRIPTION: RAD - Wrist Right 3 View - 08/09/2018 10:04 am CLINICAL HISTORY: PAIN Pain COMPARISON: No comparisons FINDINGS: A buckle fracture is present involving the distal right radial metaphysis. Mild adjacent soft tissue swelling. No dislocation evident.
== END 2018-08-09 11:02 | disposition home or self-care (01) ==
LOC: ER 09:07
PROC: 2W3CX1Z Immobilization of Right Lower Arm using Splint (ICD-10-PCS; principal; 2018-08-09)
DX: S52.91XA Unspecified fracture of right forearm, initial encounter for closed fracture (principal); W10.9XXA Fall (on) (from) unspecified stairs and steps, initial encounter; Y93.01 Activity, walking, marching and hiking; Y92.9 Unspecified place or not applicable
CPT/HCPCS: 99284

== ENCOUNTER 2018-10-16 18:49 | Emergency (ER) | payer SELFPAY ==
--- NOTE | 2018-10-16 19:49 | ER ---
Nurse's Notes [facility] Name: Shani Pat Age: 33 yrs Sex: Female : 1985 Arrival Date: 10/16/2018 Time: 18:51 Bed Waiting Private MD: Diagnosis: ED Course: 10/16 18:51 Patient arrived in ED. as 19:23 Patient's name was called from ER lobby. No response. aj1 19:34 Patient's name was called from ER lobby. No response. aj1 19:48 Patient's name was called from ER lobby. No response. Unable to locate patient. Will aj1 disposition as left without being seen by a provider. Administered Medications: No medications were administered Outcome: 19:49 Patient left the ED. aj1 Signatures: Rina Kevin, RN RN aj1 Viktoria Tan as
== END 2018-10-16 19:49 | disposition left against medical advice (07) ==
LOC: ER 18:49
DX: Z02.9 Encounter for administrative examinations, unspecified (principal)

== ENCOUNTER 2018-11-22 21:42 | Emergency (ER) | payer OTHER ==
[2018-11-22 22:38] LABS: Absolute Lymphocytes (CBC) 1.6 K/uL (0.7-4.9); Absolute Monocytes 0.7 K/uL (0.1-1.3); Absolute Neutrophil 8.2 K/uL (1.8-8.0); Basophils % 0.3 % (0-1.3); Eosinophils % 1.9 % (0-4.4); Hematocrit 24.4 % (36.0-45.0); Lymphocytes % 15.3 % (15.3-44.8); MPV 7.1 fL (7.6-11.3); Monocytes % 6.6 % (3.3-12.3); RBC Red Blood Cell Count 3.56 M/uL (3.86-4.86)
[2018-11-22 22:59] LABS: BUN Blood Urea Nitrogen 6 mg/dL (7-18); Bicarbonate 23 mmol/L (21-32); Glucose Level 70 mg/dL (74-106); Potassium 3.4 mmol/L (3.5-5.1); Sodium Level 138 mmol/L (136-145)
[2018-11-22 23:34] LABS: Urine Blood 3+ (NEG); Urine Glucose NEGATIVE (NEG); Urine Protein 3+ (NEG); Urine Specific Gravity >1.030 (1.005-1.030)
--- NOTE | 2018-11-22 23:44 | EDPHYS ---
Physician Documentation [facility] Name: Shani Pat Age: 33 yrs Sex: Female : 1985 Arrival Date: 11/22/2018 Time: 21:45 Bed 17 Private MD: ED Physician Julius Major HPI: 11/22 22:00 This 33 yrs old Female presents to ER via Unassigned with complaints of ps1 Vaginal Bleeding, 14 weeks preg. 22:00 PT is reportedly high risk \T\ 12wks. one shortly after after LO \T\ ps 1 \R\30wks. Recent treatment for UTI with bactrim. [facility] OB patient. Patient states that she started to have a lot of VB today. No fever. No POC. ? rH. Hx of anemia requiring transfusions. . 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 - Social history:: Smoking status: Patient uses tobacco products, denies chronic smoking, but will smoke occasionally. - Ebola Screening: : No symptoms or risks identified at this time. ROS: 22:00 Constitutional: Negative for fever, chills, and weight loss, Eyes: Negative for injury, ps1 pain, redness, and discharge, Cardiovascular: Negative for chest pain, palpitations, and edema, Respiratory: Negative for shortness of breath, cough, wheezing, and pleuritic chest pain, Abdomen/GI: Negative for abdominal pain, nausea, vomiting, diarrhea, and constipation, MS/Extremity: Negative for injury and deformity, Skin: Negative for injury, rash, and discoloration, Neuro: Negative for headache, weakness, numbness, tingling, and seizure. 22:00 : Positive for urinary symptoms, pelvic pain, urinary frequency, vaginal bleeding. Exam: 22:00 Constitutional: This is a well developed, well nourished patient who is awake, alert, ps1 and in no acute distress. Head/Face: Normocephalic, atraumatic. Eyes: Pupils equal round and reactive to light, extra-ocular motions intact. Lids and lashes normal. Conjunctiva and sclera are non-icteric and not injected. Chest/axilla: Normal chest wall appearance and motion. Nontender with no deformity. No lesions are appreciated. Cardiovascular: Regular rate and rhythm. No gallops, murmurs, or rubs. Normal PMI, no JVD. No pulse deficits. Respiratory: Lungs have equal breath sounds bilaterally, clear to auscultation and percussion. No rales, rhonchi or wheezes noted. No increased work of breathing, no retractions or nasal flaring. Skin: Warm, dry with normal turgor. Normal color with no rashes, no lesions, and no evidence of cellulitis. MS/ Extremity: Pulses equal, no cyanosis. Neurovascular intact. Full, normal range of motion. Neuro: Awake and alert, GCS 15, oriented to person, place, time, and situation. Cranial nerves II-XII grossly intact. Sensory grossly intact. Psych: Awake, alert, with orientation to person, place and time. Behavior, mood, and affect are within normal limits. 22:00 Abdomen/GI: Inspection: abdomen appears normal, Bowel sounds: normal, Palpation: mild abdominal tenderness, in the suprapubic area, point of care ultrasound performed transabdominal of the uterus. Demonstrated an IUP with FHT \T\140. Not an anatomical study. . Vital Signs: 21:49 BP 135 / 92; Pulse 107; Resp 20 S; Temp 98.3(O); Pulse Ox 100% on R/A; Weight 58.06 kg cc3 (R); Height 5 ft. 1 in. (154.94 cm) (R); 22:45 BP 140 / 94; Pulse 101; Resp 15 S; Pulse Ox 99% on R/A; cc3 22:55 BP 142 / 83; Pulse 104; Resp 31 S; Pulse Ox 100% on R/A; cc3 23:00 BP 129 / 114; Pulse 100; Resp 26 S; Pulse Ox 100% on R/A; cc3 23:15 BP 139 / 96; Pulse 109; Resp 23 S; Pulse Ox 100% on R/A; cc3 23:30 BP 138 / 72; Pulse 108; Resp 19 S; Pulse Ox 100% on R/A; cc3 11/23 00:00 BP 124 / 90; Pulse 100; Resp 25 S; Pulse Ox 99% on R/A; cc3 00:30 BP 145 / 91; Pulse 108; Resp 20 S; Pulse Ox 100% on R/A; cc3 11/22 21:49 Body Mass Index 24.19 (58.06 kg, 154.94 cm) cc3 MDM: 11/22 22:05 Patient medically screened. ps1 23:13 Data reviewed: vital signs, nurses notes. ps1 23:13 ED course: Called to bathroom 2/2 patient having spontaneous miscarriage. Brought back ps1 to room and delivered fetus and POC. Non-viable. TOD:1045 pm. Delivered placenta. EBL 50cc. . 11/23 00:43 ED course: Patient got into a heated argument with family members. Patient requesting ps1 to leave AMA. Discussed risks and benefits at length and patient is still requesting to leave. Does not trust family in house. Tried to get police to welfare check the house and patient refused. Attempted multiple strategies to change her mind. Will rx doxy 100mg bid and strong return precautions given. . 11/22 22:05 Order name: Abo/rh Typing; Complete Time: 00:47 [facility] 11/22 22:05 Order name: Basic Metabolic Panel; Complete Time: 23:09 [facility] 11/22 22:05 Order name: CBC with Diff [facility] 11/22 23:16 Order name: Urine Dipstick--Ancillary (enter results); Complete Time: 00:47 cm6 11/22 23:16 Order name: Urine --Ancillary (enter results); Complete Time: 00:47 cm6 11/22 23:17 Order name: Urine Microscopic Only; Complete Time: 00:47 cm6 11/22 22:05 Order name: IV Saline Lock; Complete Time: 22:47 [facility] 11/22 23:58 Order name: CBC with Automated Diff EDMS 11/22 23:58 Order name: CBC with Automated Diff EDMS 11/23 00:05 Order name: CBC Smear Scan EDMS 11/22 22:06 Order name: Labs collected and sent; Complete Time: 22:47 [facility] 11/22 22:06 Order name: NPO; Complete Time: 22:08 ps1 11/22 22:06 Order name: Urine Dipstick-Ancillary (obtain specimen); Complete Time: 23:14 ps1 Administered Medications: 11/22 23:40 Drug: Rocephin - (cefTRIAXone) 1 grams Route: IVPB; Infused Over: 30 mins; Site: right cc3 antecubital; 11/23 00:00 Follow up: Response: No adverse reaction; IV Status: Completed infusion cc3 00:00 Drug: NS 0.9% 1000 ml Route: IV; Rate: 1 bolus; Site: right antecubital; cc3 00:45 Follow up: Response: No adverse reaction; IV Status: Completed infusion; IV Intake: cc3 1000ml 00:03 Drug: morphine 4 mg Route: IVP; Site: right antecubital; cc3 00:30 Follow up: Response: No adverse reaction; Pain is decreased cc3 00:07 Drug: Zofran 4 mg Route: IVP; Site: right antecubital; cc3 00:30 Follow up: Response: No adverse reaction; Nausea is decreased cc3 Disposition: 11/23/18 00:58 Patient has left against medical advice. - Patients states they are going to Home. - Condition is Fair. Signatures: Dispatcher [employer] EDMS Rosy Coello RN RN bb Rekha Jurado RN RN cg Julius Major MD MD ps1 Kristina Pelaez cc3 Corrections: (The following items were deleted from the chart) 00:16 11/22 23:43 Hospitalization Ordered by Maryuri Coley MD for Observation. Preliminary cg diagnosis is Complete ; Acute cystitis; Anemia\E\. [facility]. Status is Observation. Condition is Stable. Problem is new. Symptoms have improved. UTI on Admission? Yes. ps1 11/23 00:57 00:16 11/22/2018 23:43 Hospitalization Ordered by Maryuri Coley MD for Observation. bb Preliminary diagnosis is Complete ; Acute cystitis; Anemia\E\. [facility]. Status is Observation. Condition is Stable. Problem is new. Symptoms have improved. UTI on Admission? Yes. cg 01:01 00:58 11/23/2018 00:58 Patients has left against medical advice. Patient states they cc3 are going to Home. Condition is Fair. Prescriptions for Ferrous Sulfate 325 mg (65 mg Iron) Oral Tablet - take 1 tablet by ORAL route every 8 hours; 90 tablet, Zofran 4 mg Oral Tablet - take 1 tablet by ORAL route every 12 hours As needed; 20 tablet, Doxycycline Hyclate 100 mg Oral Tablet - take 1 tablet by ORAL route every 12 hours; 20 tablet bb
--- NOTE | 2018-11-22 23:44 | ER ---
Nurse's Notes [facility] Name: Shani Pat Age: 33 yrs Sex: Female : 1985 Arrival Date: 11/22/2018 Time: 21:45 Bed 17 Private MD: Diagnosis: Presentation: 11/22 21:49 Presenting complaint: Patient states: "I've been having vaginal bleeding since whole 3 cc3 months but today's worst. I was walking in the mall earlier with my sister when I started to have profuse vaginal bleeding.". Transition of care: patient was not received from another setting of care. Onset of symptoms was November 22, 2018. Risk Assessment: Do you want to hurt yourself or someone else? Patient reports no desire to harm self or others. Initial Sepsis Screen: Does the patient meet any 2 criteria? HR > 90 bpm. Does the patient have a suspected source of infection? No. Patient's initial sepsis screen is negative. Care prior to arrival: None. 21:49 Method Of Arrival: Wheelchair cc3 21:49 Acuity: CECI 2 cc3 Triage Assessment: 21:49 General: Appears in no apparent distress. uncomfortable, Behavior is cooperative, cc3 anxious. Pain: Denies pain. EENT: No signs and/or symptoms were reported regarding the EENT system. Neuro: Level of Consciousness is awake, alert, obeys commands, Oriented to person, place, time, situation, Appropriate for age. Cardiovascular: Denies chest pain, Patient's skin is warm and dry. Respiratory: Airway is patent Respiratory effort is even, unlabored, Respiratory pattern is regular, symmetrical. GI: Abdomen is round Patient 14 weeks as she said. : Reports vaginal bleeding that is bright red, heavy flow since 3 months. Derm: No signs and/or symptoms reported regarding the dermatologic system. Musculoskeletal: Circulation, motion, and sensation intact. Range of motion: intact in all extremities. 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 - Social history:: Smoking status: Patient uses tobacco products, denies chronic smoking, but will smoke occasionally. - Ebola Screening: : No symptoms or risks identified at this time. Screenin:49 Abuse screen: Denies threats or abuse. Denies injuries from another. Nutritional cc3 screening: No deficits noted. Tuberculosis screening: No symptoms or risk factors identified. Fall Risk Ambulatory Aid- None/Bed Rest/Nurse Assist (0 pts). Gait- Weak (10 pts.). Mental Status- Oriented to own ability (0 pts). Assessment: 21:49 General: see triage assessment. cc3 22:40 Reassessment: Patient and/or family updated on plan of care and expected duration. Pain cc3 level reassessed. Patient is alert, oriented x 3, equal unlabored respirations, skin warm/dry/pink. Patient was in the bathroom to urinate when she called and said she was passing clots of blood, informed Dr. Major and immediately brought the patient back to her bed, prepared for pelvic exam, and removal of the delivered matter and tissues that were already hanging on the patient's vaginal opening. Hooked the patient back on cardiac monitoring. 22:45 Reassessment: Dr. Major removed the delivered nonviable fetus and products of cc3 conception including the placenta. 23:05 Reassessment: Patient appears in no apparent distress at this time. Patient and/or cc3 family updated on plan of care and expected duration. Pain level reassessed. Patient is alert, oriented x 3, equal unlabored respirations, skin warm/dry/pink. Delivered nonviable fetus, products of conception, and placenta sent to laboratory by RAHAT Rogers. 23:43 Reassessment: Patient for admission as a case of complete , waiting for cc3 admission orders. 11/23 00:30 Reassessment: Patient and/or family updated on plan of care and expected duration. Pain cc3 level reassessed. Patient is alert, oriented x 3, equal unlabored respirations, skin warm/dry/pink. Patient was just talking to her sister when suddenly she became hysterical, exchange of bad words with her family and became agitated and wanting to go home against medical advice because of family issues though risks and consequences explained, charge nurse Rosy and Dr. Major informed. Security informed as well. 00:45 Reassessment: Provider at the bedside speaking with patient about leaving AMA. Pt jb4 refused to stay and wanted to go home. AMA form signed. 01:00 Reassessment: Patient appears in no apparent distress at this time. Patient and/or cc3 family updated on plan of care and expected duration. Pain level reassessed. Patient is alert, oriented x 3, equal unlabored respirations, skin warm/dry/pink. Patient still opted to leave against medical advice though risks and consequences explained and instructed to come back to ER for worsening of symptoms. IV cannula removed and patient left ER vitally stable and ambulatory. Patient denies pain at this time. Vital Signs: 11/22 21:49 BP 135 / 92; Pulse 107; Resp 20 S; Temp 98.3(O); Pulse Ox 100% on R/A; Weight 58.06 kg cc3 (R); Height 5 ft. 1 in. (154.94 cm) (R); 22:45 BP 140 / 94; Pulse 101; Resp 15 S; Pulse Ox 99% on R/A; cc3 22:55 BP 142 / 83; Pulse 104; Resp 31 S; Pulse Ox 100% on R/A; cc3 23:00 BP 129 / 114; Pulse 100; Resp 26 S; Pulse Ox 100% on R/A; cc3 23:15 BP 139 / 96; Pulse 109; Resp 23 S; Pulse Ox 100% on R/A; cc3 23:30 BP 138 / 72; Pulse 108; Resp 19 S; Pulse Ox 100% on R/A; cc3 11/23 00:00 BP 124 / 90; Pulse 100; Resp 25 S; Pulse Ox 99% on R/A; cc3 00:30 BP 145 / 91; Pulse 108; Resp 20 S; Pulse Ox 100% on R/A; cc3 11/22 21:49 Body Mass Index 24.19 (58.06 kg, 154.94 cm) cc3 Vitals: 11/22 21:49 Heart Tones 140, abdominal ultrasound done bedside by Dr. Major. cc3 ED Course: 21:45 Patient arrived in ED. es 21:49 Kristina Pelaez is Primary Nurse. cc3 21:49 Arm band placed on right wrist. cc3 21:49 Patient has correct armband on for positive identification. Placed in gown. Bed in low cc3 position. Call light in reach. Side rails up X2. hospital monitor on. Pulse ox on. NIBP on. 21:50 Julius Major MD is Attending Physician. ps1 22:25 Inserted saline lock: 20 gauge in right antecubital area, using aseptic technique. cc3 Blood collected. 22:45 removal of delivered matter, products of conception, and placenta. cc3 23:08 Notified ED physician of a critical lab result(s). HGB of 7.7 Dr Major notified. bb 23:20 Triage completed. cc3 23:42 Maryuri Coley MD is Hospitalizing Provider. ps1 04 00:50 IV discontinued, intact, bleeding controlled, No redness/swelling at site. Pressure cc3 dressing applied. Administered Medications: 11/22 23:40 Drug: Rocephin - (cefTRIAXone) 1 grams Route: IVPB; Infused Over: 30 mins; Site: right cc3 antecubital; 04 00:00 Follow up: Response: No adverse reaction; IV Status: Completed infusion cc3 00:00 Drug: NS 0.9% 1000 ml Route: IV; Rate: 1 bolus; Site: right antecubital; cc3 00:45 Follow up: Response: No adverse reaction; IV Status: Completed infusion; IV Intake: cc3 1000ml 00:03 Drug: morphine 4 mg Route: IVP; Site: right antecubital; cc3 00:30 Follow up: Response: No adverse reaction; Pain is decreased cc3 00:07 Drug: Zofran 4 mg Route: IVP; Site: right antecubital; cc3 00:30 Follow up: Response: No adverse reaction; Nausea is decreased cc3 Intake: 00:45 IV: 1000ml; Total: 1000ml. cc3 Outcome: 11/22 23:43 Decision to Hospitalize by Provider. ps1 11/23 00:45 AMA AMA form signed cc3 Condition: stable Discharge instructions given to patient, Instructed on follow up and referral plans. the need for admit, Demonstrated understanding of instructions, follow-up care. 01:01 Patient left the ED. cc3 Signatures: Yuli Almonte Brenda, RN RN bb Tan Yan RN RN jb4 Julius Major MD MD ps1 Cordel, Charlene cc3 Corrections: (The following items were deleted from the chart) 00:34 11/22 23:05 Reassessment: Patient appears in no apparent distress at this time. Patient cc3 and/or family updated on plan of care and expected duration. Pain level reassessed. Patient is alert, oriented x 3, equal unlabored respirations, skin warm/dry/pink. matter and tissues cc3 11/23 01:42 11/22 22:40 Reassessment: Patient and/or family updated on plan of care and expected cc3 duration. Pain level reassessed. Patient is alert, oriented x 3, equal unlabored respirations, skin warm/dry/pink. Patient was in the bathroom to urinate when she called and said she was passing clots of blood, informed Dr. Major and immediately brought the patient back to her bed, prepared for pelvic exam, and removal of matter and tissues that were already hanging on the patient's vaginal opening. Hooked the patient back on cardiac monitoring. cc3 11/23 01:48 11/22 23:43 Reassessment: Patient for admission, waiting for admission orders. cc3 cc3 11/23 01:51 11/22 22:40 Reassessment: Patient and/or family updated on plan of care and expected cc3 duration. Pain level reassessed. Patient is alert, oriented x 3, equal unlabored respirations, skin warm/dry/pink. Patient was in the bathroom to urinate when she called and said she was passing clots of blood, informed Dr. Major and immediately brought the patient back to her bed, prepared for pelvic exam, and removal of matter and tissues that were already hanging on the patient's vaginal opening. Hooked the patient back on cardiac monitoring. cc3 11/23 01:53 00:30 Reassessment: Patient and/or family updated on plan of care and expected cc3 duration. Pain level reassessed. Patient is alert, oriented x 3, equal unlabored respirations, skin warm/dry/pink. Patient was just talking to her sister when suddenly she became hysterical, exchange of bad words with her family and became agitated and wanting to go home against medical advice, charge nurse Rosy and Dr. Major informed. Security informed as well. cc3 01:53 11/22 22:45 Reassessment: Dr. Major removed the fetus and products of conception cc3 including the placenta cc3 11/23 02:07 11/22 22:45 Reassessment: Dr. Major removed the delivered fetus and products of cc3 conception including the placenta cc3 11/23 02:09 11/22 23:05 Reassessment: Patient appears in no apparent distress at this time. Patient cc3 and/or family updated on plan of care and expected duration. Pain level reassessed. Patient is alert, oriented x 3, equal unlabored respirations, skin warm/dry/pink. matter and tissues sent to laboratory by RAHAT Rogers. cc3
[2018-11-22] MEDS ORDERED: CEFTRIAXONE/SWI 1gm 1 GM/10 ML SYR ONE (23:55)
[2018-11-22 23:56] LABS: Urine Bacteria <20 /HPF (<20); Urine Culture Reflex Order NOT NEEDED; Urine Mucus HEAVY /HPF (NONE SEEN); Urine RBC TNTC /HPF (NONE SEEN)
[2018-11-22] MEDS ORDERED: MORPHINE 4 MG/ML SYR IV PRN (23:58)
[2018-11-22] MEDS ORDERED: ONDANSETRON 4 MG/2 ML VIAL IV PRN (23:58)
[2018-11-23 00:03] LABS: Anisocytosis 1+; Blood Morphology Comment NOTED (NOT SEEN); Hypochromasia 1+; Platelet Estimate ADEQ; Polychromasia SLIGHT; Urine White Blood Cell Casts OK
[2018-11-23] MEDS ORDERED: MORPHINE 4 MG/ML SYR ONE (00:09)
[2018-11-23] MEDS ORDERED: ONDANSETRON 4 MG/2 ML VIAL ONE (00:10)
[2018-11-23] MEDS ORDERED: NA CHLORIDE 0.9% 1,000 ML ONE (00:10)
[2018-11-23] MEDS ORDERED: DOXYCYCLINE 100 MG CAP PO SCH (09:00)
== END 2018-11-23 01:01 | disposition left against medical advice (07) ==
LOC: ER 21:42 → ERHOLD 11-23 00:06 → UNDOADMOB 11-23 00:06
DX: O46.92 Antepartum hemorrhage, unspecified, second trimester (principal); Z3A.14 14 weeks gestation of pregnancy; D64.9 Anemia, unspecified; F41.9 Anxiety disorder, unspecified; Z72.0 Tobacco use; Z53.29 Procedure and treatment not carried out because of patient's decision for other reasons
CPT/HCPCS: 36415; 80048; 81003; 81015; 81025; 85025; 86900; 86901; 88300; 88305; 96361; 96365; 96375; 99284; J0696; J2405; J7030

== ENCOUNTER 2019-02-03 14:21 | Emergency (ER) | payer OTHER ==
[2019-02-03 14:51] LABS: Absolute Lymphocytes (CBC) 2.2 K/uL (0.7-4.9); Basophils % 0.7 % (0-1.3); Eosinophils % 1.6 % (0-4.4); Hematocrit 24.5 % (36.0-45.0); MPV 7.5 fL (7.6-11.3); Monocytes % 7.6 % (3.3-12.3); RBC Red Blood Cell Count 3.82 M/uL (3.86-4.86)
[2019-02-03] MEDS ORDERED: NA CHLORIDE 0.9% 100 ML IV ONE (15:00)
[2019-02-03] MEDS ORDERED: LEVETIRACETAM 500 MG/5 ML VIAL IV ONE (15:00)
[2019-02-03 15:01] LABS: ALT/SGPT 32 U/L (12-78); AST/SGOT 36 U/L (15-37); Albumin 3.8 g/dL (3.4-5.0); Alkaline Phosphatase 81 U/L (45-117); BUN Blood Urea Nitrogen 9 mg/dL (7-18); Bicarbonate 27 mmol/L (21-32); Bilirubin Total 0.2 mg/dL (0.2-1.0); Glucose Level 81 mg/dL (74-106); Potassium 4.3 mmol/L (3.5-5.1); Protein, Total 7.3 g/dL (6.4-8.2); Sodium Level 142 mmol/L (136-145)
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
[2019-02-03 16:06] LABS: Urine Blood TRACE (NEG); Urine Glucose NEGATIVE (NEG); Urine Protein NEGATIVE (NEG); Urine Specific Gravity 1.015 (1.005-1.030)
[2019-02-03 16:19] LABS: Barbiturates NEGATIVE (NEGATIVE); Benzodiazepines POSITIVE (NEGATIVE); Cocaine NEGATIVE (NEGATIVE); METHAMPHETAM POSITIVE (NEGATIVE); Methadone NEGATIVE (NEGATIVE); Opiates POSITIVE (NEGATIVE); Phencyclidine NEGATIVE (NEGATIVE); THC Cannibis NEGATIVE (NEGATIVE)
[2019-02-03 16:20] LABS: Urine Bacteria <20 /HPF (<20); Urine Culture Reflex Order REFLEXED; Urine RBC <5 /HPF (NONE SEEN)
[2019-02-03 16:47] LABS: Platelet Estimate INCR; Urine White Blood Cell Casts OK
[2019-02-03 16:48] LABS: Anisocytosis 2+; Blood Morphology Comment NOTED (NOT SEEN); Hypochromasia 1+; Platelets, Giant PRESENT
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
== END 2019-02-03 18:12 | disposition short-term general hospital (02) ==
LOC: ER 14:21
DX: S00.83XA Contusion of other part of head, initial encounter (principal); R93.89 Abnormal findings on diagnostic imaging of other specified body structures; G40.909 Epilepsy, unspecified, not intractable, without status epilepticus; Z91.14 Patient's other noncompliance with medication regimen; V45.5XXA Car driver injured in collision with railway train or railway vehicle in traffic accident, initial encounter; F41.9 Anxiety disorder, unspecified; Z72.0 Tobacco use
CPT/HCPCS: 36415; 70450; 70487; 71260; 72125; 74177; 80053; 80307; 81003; 81015; 81025; 83605; 85025; 86850; 86900; 86901; 87086; 87088; 96374; 99285; J1953; Q9967

== ENCOUNTER 2023-01-22 11:26 | Emergency (ER) | payer SELFPAY ==
[2023-01-22] MEDS ORDERED: ONDANSETRON 4 MG/2 ML VIAL ONE (11:55)
[2023-01-22] MEDS ORDERED: NA CHLORIDE 0.9% 1,000 ML ONE (11:55)
[2023-01-22] MEDS ORDERED: FAMOTIDINE 20 MG/2 ML VIAL IV ONE (11:55)
--- OUTSIDE RECORDS SUMMARY | 2023-01-22 12:07 | XMS REPORT | Continuity of Care Document ---
:1985 Author Organization [facility] t Address [address] [place] [address] [address] [place] [address] Care Team Providers Name Role Phone Unavailable Unavailable Unavailable Problems This patient has no known problems. Allergies, Adverse Reactions, Alerts This patient has no known allergies or adverse reactions. Medications This patient has no known medications. Procedures This patient has no known procedures. Encounters Start End Encounter Admission Attending Care Care Encounter Source Date/Time Date/Time Type Type Clinicians Facility Department ID 2023-01-10 2023-01-10 Outpatient SFA SFA [id number] [place] 15:47:06 15:47:06 [id number] [facility] 2022-11-28 2022-11-28 Outpatient SFA SFA [id number] [place] 11:27:33 11:27:33 [id number] [facility] 2022-09-29 2022-09-29 Outpatient SFA SFA [id number] [place] 16:21:04 16:21:04 [id number] [facility] 2022-09-19 2022-09-19 Outpatient SFA SFA [id number] [place] 15:38:07 15:38:07 [id number] [facility] Results Test Description Test Time Test Comments Results Result Comments Source [facility] DNA PANEL 2022-09-21 13:51:45 Test Item Value Reference Range Interpretation Comme nts SONIA SPECIES (test code NEGATIVE NEGATIVE = ) G. VAGINALIS (test code = NEGATIVE NEGATIVE ) T. VAGINALIS (test code = NEGATIVE NEGATIVE N ote: The BD Affirm VPIII Microbial ) Identification Testis a DNA probe test intended for us e in the detectionand identification of Sonia species, Gardnerellavagi nalis and Trichomonas vaginalis nucle ic acid. [facility] has important patho logy staff changes effective 10/04. New pathology staff will provide uninterrupted, excellent patient care and clinical co nsultation. See URL: [email or web address]. UNLESS OTHERWISE INDIC ATED, ALL TESTING PERFORMED AT [facility], [facility]. [address] [place] [address] CLIA : [id number], CAP: [id number]
[2023-01-22 12:25] LABS: Absolute Lymphocytes (CBC) 0.6 K/uL (0.7-4.9); Hematocrit 42.3 % (36.0-45.0); MCV 91.7 fL (80-100); MPV 7.6 fL (7.6-11.3); RBC Red Blood Cell Count 4.61 M/uL (3.86-4.86)
[2023-01-22 12:33] LABS: Specific Gravity > 1.030 (1.005-1.030); Urine Bacteria <20 /HPF (<20); Urine Bilirubin NEGATIVE (Negative); Urine Blood Negative (Negative); Urine Clarity Turbid (Clear); Urine Color Yellow (Yellow); Urine Glucose NEGATIVE (Negative); Urine Mucus 2+ /HPF (None Seen); Urine Protein TRACE (Negative); Urine Urobilinogen Normal (Normal); Urine pH 6.5 (5.0-7.0)
[2023-01-22 12:35] LABS: Specific Gravity 1.031 (1.005-1.030)
[2023-01-22 12:42] LABS: Albumin 3.9 g/dL (3.4-5.0); Bilirubin Total 0.8 mg/dL (0.2-1.0); Potassium 3.6 mEq/L (3.5-5.1); Protein, Total 7.6 g/dL (6.4-8.2)
--- NOTE | 2023-01-22 13:26 | ER ---
Nurse's Notes [facility] Name: Shani Pat Age: 37 yrs Sex: Female : 1985 Arrival Date: 01/22/2023 Time: 11:26 Bed 15 Private MD: Diagnosis: Vomiting;Vomiting, unspecified;UTI/ Urinary tract infection, site not specified Presentation: 01/22 11:34 Chief complaint: Patient states: "I started taking a new monthly pack control aa5 last night and it just kept making me vomit every hour last night". Pt reports lower abd cramping, she just started taking the new control 1 month ago. Coronavirus screen: vomiting. Ebola Screen: Patient denies travel to an Ebola-affected area in the 21 days before illness onset. Initial Sepsis Screen: Does the patient meet any 2 criteria? No. Patient's initial sepsis screen is negative. Does the patient have a suspected source of infection? No. Patient's initial sepsis screen is negative. Risk Assessment: Do you want to hurt yourself or someone else? Patient reports no desire to harm self or others. Onset of symptoms was January 2023. 11:34 Acuity: CECI 3 aa5 11:34 Method Of Arrival: Ambulatory aa5 Triage Assessment: 11:45 General: Appears in no apparent distress. Behavior is calm, cooperative, appropriate bp for age. GI: Reports lower abdominal pain, nausea. FREELANCE DATA ENTRY: 11:38 LMP 01/08/2023 aa5 Historical: - Allergies: 11:37 No Known Allergies; aa5 - PMHx: 11:37 Anemia; Anxiety; heavy periods, blood transfusion; Seizures; aa5 - Immunization history:: Adult Immunizations unknown. - Social history:: Smoking status: Patient denies any tobacco usage or history of. - Family history:: pertinent for. Screenin:30 [facility] ED Fall Risk Assessment (Adult) History of falling in the last 3 months, bp including since admission No falls in past 3 months (0 pts). Abuse screen: Denies threats or abuse. Denies injuries from another. Nutritional screening: No deficits noted. Tuberculosis screening: No symptoms or risk factors identified. Assessment: 11:45 General: SEE TRIAGE NOTE. bp 12:45 Reassessment: No changes from previously documented assessment. Patient is alert, bp oriented x 3, equal unlabored respirations, skin warm/dry/pink. Pain: Denies pain. GI: Abdomen is non-distended. Vital Signs: 11:34 BP 126 / 99; Pulse 87; Resp 16 S; Temp 98.6(TE); Pulse Ox 100% on R/A; Weight 63.5 kg aa5 (R); Height 5 ft. 1 in. (R); 12:45 BP 109 / 84; Pulse 93; Resp 16; Pulse Ox 99% ; bp 14:33 BP 110 / 85; Pulse 81; Resp 16; Pulse Ox 98% ; bp 11:34 Body Mass Index 26.45 (63.50 kg, 154.94 cm) aa5 ED Course: 11:27 Patient arrived in ED. im 11:32 Jan Perry MD is Attending Physician. lina 11:34 Arm band placed on. aa 11:37 Triage completed. aa 11:42 Quirino Ervin, RN is Primary Nurse. bp 12:00 Inserted saline lock: 22 gauge in right forearm, using aseptic technique. Blood bp collected. 12:30 Patient has correct armband on for positive identification. Bed in low position. Call bp light in reach. Side rails up X2. 14:33 No provider procedures requiring assistance completed. IV discontinued, intact, bp bleeding controlled, No redness/swelling at site. Pressure dressing applied. Administered Medications: 12:00 Drug: NS 0.9% IV 1000 ml Route: IV; Rate: 1 bolus; Site: right forearm; bp 14:34 Follow up: IV Status: Completed infusion; IV Intake: 1000ml bp 12:00 Drug: Famotidine IVP 20 mg Route: IVP; Site: right forearm; bp 13:54 Follow up: Response: No adverse reaction bp 12:00 Drug: Ondansetron IVP 4 mg Route: IVP; Site: right forearm; bp 14:34 Follow up: Response: No adverse reaction bp 13:30 Drug: Rocephin IV 1 grams Route: IV; Rate: per protocol; Site: right forearm; bp 14:33 Follow up: IV Status: Completed infusion; IV Intake: 100ml bp Intake: 14:33 IV: 100ml; Total: 100ml. bp 14:34 IV: 1000ml; Total: 1100ml. bp Outcome: 13:25 Discharge ordered by . lina 14:33 Discharged to home ambulatory. bp 14:33 Condition: stable 14:33 Discharge instructions given to patient, Instructed on discharge instructions, follow up and referral plans. medication usage, Demonstrated understanding of instructions, follow-up care, medications, Prescriptions given X 2. 14:34 Patient left the ED. bp Signatures: Jan Perry MD MD cha Calderon, Audri, RN RN aa5 Quirino rEvin RN RN bp Melanie Worley
--- NOTE | 2023-01-22 13:26 | EDPHYS ---
Physician Documentation [facility] Name: Shani Pat Age: 37 yrs Sex: Female : 1985 Arrival Date: 01/22/2023 Time: 11:26 Bed 15 Private MD: ED Physician Jan Perry HPI: 01/22 13:19 This 37 yrs old Female presents to ER via Ambulatory with complaints of lina Vomiting. 13:19 The patient presents to the emergency department with nausea, vomiting, that is lina intermittent. Onset: The symptoms/episode began/occurred 2 day(s) ago. Possible causes: unknown. The symptoms are aggravated by nothing. The symptoms are alleviated by nothing. Severity of symptoms: At their worst the symptoms were mild in the emergency department the symptoms are unchanged. The patient has experienced similar episodes in the past, several times. 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 - Social history:: Smoking status: Patient denies any tobacco usage or history of. - Family history:: pertinent for. ROS: 13:19 Constitutional: Negative for fever, chills, and weight loss, Eyes: Negative for injury, lina pain, redness, and discharge, ENT: Negative for injury, pain, and discharge, Neck: Negative for injury, pain, and swelling, Cardiovascular: Negative for chest pain, palpitations, and edema, Respiratory: Negative for shortness of breath, cough, wheezing, and pleuritic chest pain, Back: Negative for injury and pain, : Negative for injury, bleeding, discharge, and swelling, MS/Extremity: Negative for injury and deformity, Skin: Negative for injury, rash, and discoloration, Neuro: Negative for headache, weakness, numbness, tingling, and seizure, Psych: Negative for depression, anxiety, suicide ideation, homicidal ideation, and hallucinations, Allergy/Immunology: Negative for hives, rash, and allergies, Endocrine: Negative for neck swelling, polydipsia, polyuria, polyphagia, and marked weight changes, Hematologic/Lymphatic: Negative for swollen nodes, abnormal bleeding, and unusual bruising. 13:19 Abdomen/GI: Positive for nausea and vomiting. Exam: 13:19 Constitutional: This is a well developed, well nourished patient who is awake, alert, lina and in no acute distress. Head/Face: Normocephalic, atraumatic. Eyes: Pupils equal round and reactive to light, extra-ocular motions intact. Lids and lashes normal. Conjunctiva and sclera are non-icteric and not injected. Cornea within normal limits. Periorbital areas with no swelling, redness, or edema. ENT: Nares patent. No nasal discharge, no septal abnormalities noted. Tympanic membranes are normal and external auditory canals are clear. Oropharynx with no redness, swelling, or masses, exudates, or evidence of obstruction, uvula midline. Mucous membranes moist. Neck: Trachea midline, no thyromegaly or masses palpated, and no cervical lymphadenopathy. Supple, full range of motion without nuchal rigidity, or vertebral point tenderness. No Meningismus. Chest/axilla: Normal chest wall appearance and motion. Nontender with no deformity. No lesions are appreciated. Cardiovascular: Regular rate and rhythm with a normal S1 and S2. No gallops, murmurs, or rubs. Normal PMI, no JVD. No pulse deficits. Respiratory: Lungs have equal breath sounds bilaterally, clear to auscultation and percussion. No rales, rhonchi or wheezes noted. No increased work of breathing, no retractions or nasal flaring. Abdomen/GI: Soft, non-tender, with normal bowel sounds. No distension or tympany. No guarding or rebound. No evidence of tenderness throughout. Back: No spinal tenderness. No costovertebral tenderness. Full range of motion. Skin: Warm, dry with normal turgor. Normal color with no rashes, no lesions, and no evidence of cellulitis. MS/ Extremity: Pulses equal, no cyanosis. Neurovascular intact. Full, normal range of motion. Neuro: Awake and alert, GCS 15, oriented to person, place, time, and situation. Cranial nerves II-XII grossly intact. Motor strength 5/5 in all extremities. Sensory grossly intact. Cerebellar exam normal. Normal gait. Psych: Awake, alert, with orientation to person, place and time. Behavior, mood, and affect are within normal limits. Vital Signs: 11:34 BP 126 / 99; Pulse 87; Resp 16 S; Temp 98.6(TE); Pulse Ox 100% on R/A; Weight 63.5 kg aa5 (R); Height 5 ft. 1 in. (R); 12:45 BP 109 / 84; Pulse 93; Resp 16; Pulse Ox 99% ; bp 14:33 BP 110 / 85; Pulse 81; Resp 16; Pulse Ox 98% ; bp 11:34 Body Mass Index 26.45 (63.50 kg, 154.94 cm) aa5 MDM: 11:32 Patient medically screened. [facility] 13:20 Differential diagnosis: Nonspecific abd pain, gastritis, cholecystitis, pancreatitis, lina appendicitis, diverticulitis, viral gastroenteritis, gastroenteritis. Data reviewed: vital signs, nurses notes, lab test result(s), CBC, electrolytes, hepatic panel, urinalysis. Consideration of Admission/Observation Escalation of care including admission/observation considered. I considered the following discharge prescriptions or medication management in the emergency department Medications were administered in the Emergency Department. See MAR. Test considered but Not performed: CT: no ct abd pelvis. Care significantly affected by the following chronic conditions: seizure, anemia, blood tranfusions, seizures. Counseling: I had a detailed discussion with the patient and/or guardian regarding: the historical points, exam findings, and any diagnostic results supporting the discharge/admit diagnosis, lab results, the need for outpatient follow up, for definitive care, a family practitioner, an OB/Gyne specialist. 01/22 11:32 Order name: CBC with Diff [facility] 01/22 11:32 Order name: CMP; Complete Time: 13:17 [facility] 01/22 11:32 Order name: Lipase; Complete Time: 13:17 [facility] 01/22 11:32 Order name: Test, Urine; Complete Time: 13:17 [facility] 01/22 11:32 Order name: Urinalysis w/ reflexes; Complete Time: 13:17 [facility] 01/22 12:29 Order name: CBC Smear Scan [facility] 01/22 12:42 Order name: Urine Culture [facility] 01/22 11:32 Order name: IV Saline Lock; Complete Time: 12:52 [facility] 01/22 11:32 Order name: Labs collected and sent; Complete Time: 12:52 [facility] Administered Medications: 12:00 Drug: NS 0.9% IV 1000 ml Route: IV; Rate: 1 bolus; Site: right forearm; bp 14:34 Follow up: IV Status: Completed infusion; IV Intake: 1000ml bp 12:00 Drug: Famotidine IVP 20 mg Route: IVP; Site: right forearm; bp 13:54 Follow up: Response: No adverse reaction bp 12:00 Drug: Ondansetron IVP 4 mg Route: IVP; Site: right forearm; bp 14:34 Follow up: Response: No adverse reaction bp 13:30 Drug: Rocephin IV 1 grams Route: IV; Rate: per protocol; Site: right forearm; bp 14:33 Follow up: IV Status: Completed infusion; IV Intake: 100ml bp Disposition Summary: 01/22/23 13:25 Discharge Ordered Location: Home lina Problem: new lina Symptoms: have improved lina Condition: Stable lina Diagnosis - Vomiting lina - Vomiting, unspecified lina - UTI/ Urinary tract infection, site not specified lina Followup: lina - With: Private Physician - When: 2 - 3 days - Reason: Recheck today's complaints, Continuance of care, Re-evaluation by your physician Discharge Instructions: - Discharge Summary Sheet lina - Dysuria lina - Nausea and Vomiting, Adult lina - Urinary Tract Infection, Adult lina - Nausea and Vomiting, Adult, [id number] lina - Urinary Tract Infection, Adult, [id number] lina - Vomiting, Adult lina Forms: - Work release form bd - Medication Reconciliation Form lina - Thank You Letter lina - Antibiotic Education lina - Prescription Opioid Use [facility] Prescriptions: - Zofran 4 mg Oral Tablet - take 1 tablet by ORAL route every 8 hours As needed; 24 tablet; Refills: 0, [facility] Product Selection Permitted - Bactrim DS 800-160 mg Oral Tablet - take 1 tablet by ORAL route every 12 hours for 7 days; 14 tablet; Refills: 0, [facility] Product Selection Permitted Signatures: Dispatcher [employer] Jan Howard MD MD cha Calderon, Audri, RN RN aa5 Quirino Ervin RN RN bp
[2023-01-22 13:47] LABS: Blood Morphology Comment NOT SEEN (NOT SEEN); Platelet Estimate ADEQ; White Blood Cell Scan OK (OK)
[2023-01-22] MEDS ORDERED: NA CHLORIDE 0.9% 100 ML ONE (13:55)
[2023-01-22] MEDS ORDERED: CEFTRIAXONE 1000 MG/VIAL ONE (13:55)
[2023-01-22 14:39] VITALS: TEMP 98.6
[2023-01-22 14:42] VITALS: BP 110/85; O2SAT 98
== END 2023-01-22 14:34 | disposition home or self-care (01) ==
LOC: ER 11:26
DX: N39.0 Urinary tract infection, site not specified (principal)
CPT/HCPCS: 36415; 80053; 81001; 81025; 83690; 85025; 87086; 87088; 96361; 96365; 96375; 99284; J0696; J2405; J7030

== ENCOUNTER 2023-03-24 13:43 | Emergency (ER) | payer SELFPAY ==
--- OUTSIDE RECORDS SUMMARY | 2023-03-24 13:47 | XMS REPORT | Continuity of Care Document ---
:1985 Author Organization [facility] t Address [address] [place] [address] [address] [place] [address] Care Team Providers Name Role Phone Unavailable Unavailable Unavailable Problems This patient has no known problems. Allergies, Adverse Reactions, Alerts This patient has no known allergies or adverse reactions. Medications This patient has no known medications. Procedures This patient has no known procedures. Encounters Start End Encounter Admission Attending Care Care Encounter Source Date/Time Date/Time Type Type Clinicians Facility Department ID 2023-01-24 2023-01-24 Outpatient [facility] [id number] [place]obo 14:31:37 14:31:37 [id number] [facility] 2023-01-10 2023-01-10 Outpatient SFA SFA [id number] [place]obo 15:47:06 15:47:06 [id number] [facility] 2022-11-28 2022-11-28 Outpatient SFA SFA [id number] Lobo 11:27:33 11:27:33 [id number] [facility] 2022-09-29 2022-09-29 Outpatient SFA SFA [id number] Lobo 16:21:04 16:21:04 [id number] [facility] 2022-09-19 2022-09-19 Outpatient SFA SFA [id number] Lobo 15:38:07 15:38:07 0214 [facility] Results Test Description Test Time Test Comments [...] nalis and Trichomonas vaginalis nucle ic acid. [facility] has important patho logy staff changes effective 10/04. New pathology staff will provide uninterrupted, excellent patient care and clinical co nsultation. See URL: [email or web address]. UNLESS OTHERWISE INDIC ATED, ALL TESTING PERFORMED AT [facility], [facility]. [address] [place] [address] CLIA : [id number], CAP: [id number]
[2023-03-24] MEDS ORDERED: ONDANSETRON 4 MG (ODT) TAB ONE (16:19)
[2023-03-24 16:24] LABS: Specific Gravity > 1.030 (1.005-1.030); Urine Bacteria <20 /HPF (<20); Urine Crystals Unidentified Few /HPF (None Seen); Urine Mucus 4+ /HPF (None Seen)
--- NOTE | 2023-03-24 17:20 | ER ---
Nurse's Notes [facility] Name: Shani Pat Age: 37 yrs Sex: Female : 1985 Arrival Date: 03/24/2023 Time: 13:43 Bed 12 Private MD: Diagnosis: Nausea with vomiting, unspecified;Diarrhea, unspecified;SARS-associated coronavirus as the cause of diseases classified elsewhere Presentation: 03/24 14:17 Chief complaint: Patient states: Nausea, vomiting and diarrhea for 3 days. States she nj1 can drink gatorade but later on she throws it back up. Coronavirus screen: Vaccine status: Patient reports receiving the 2nd dose of the covid vaccine. Ebola Screen: Patient denies travel to an Ebola-affected area in the 21 days before illness onset. Initial Sepsis Screen: Does the patient meet any 2 criteria? No. Patient's initial sepsis screen is negative. Does the patient have a suspected source of infection? No. Patient's initial sepsis screen is negative. Risk Assessment: Do you want to hurt yourself or someone else? Patient reports no desire to harm self or others. Onset of symptoms was March 22, 2023. 14:17 Method Of Arrival: Ambulatory [facility] 14:17 Acuity: CECI [address] [facility] Triage Assessment: 14:20 General: Appears in no apparent distress. GI: Patient currently denies nausea. [facility] Historical: - Allergies: 14:19 No Known Allergies; ia1 - PMHx: 14:19 Anemia; Anxiety; heavy periods, blood transfusion; Seizures; [facility] - PSHx: 14:19 None; [facility] - Immunization history:: Client reports receiving the 2nd dose of the Covid vaccine. - Social history:: Smoking status: Patient denies any tobacco usage or history of. Screenin:31 [facility] ED Fall Risk Assessment (Adult) Score/Fall Risk Level 0 - 2 = Low Risk hb Oriented to surroundings, Maintained a safe environment. Abuse screen: Denies threats or abuse. Denies injuries from another. Nutritional screening: No deficits noted. Tuberculosis screening: No symptoms or risk factors identified. Assessment: 16:02 General: Appears in no apparent distress. Behavior is calm, cooperative. Pain: Pain hb currently is 1 out of 10 on a pain scale. Neuro: Level of Consciousness is awake, alert, obeys commands, Oriented to person, place, time, situation. Cardiovascular: Patient's skin is warm and dry. Respiratory: Respiratory effort is even, unlabored, Respiratory pattern is regular, symmetrical. GI: Reports lower abdominal pain, nausea, vomiting. : No signs and/or symptoms were reported regarding the genitourinary system. EENT: No signs and/or symptoms were reported regarding the EENT system. Derm: Skin is pink, warm \T\ dry. Musculoskeletal: No signs and/or symptoms reported regarding the musculoskeletal system. Vital Signs: 14:17 BP 131 / 91; Pulse 77; Resp 18; Temp 98.8; Pulse Ox 100% on R/A; Weight 63.5 kg; Height nj1 5 ft. 1 in. ; Pain 0/10; 14:17 Body Mass Index 26.45 (63.50 kg, 154.94 cm) nj1 14:17 Pain Scale: Adult [facility] ED Course: 13:45 Patient arrived in ED. ts1 14:19 Triage completed. nj1 14:20 Arm band placed on right wrist. nj1 15:06 Jan Vela PA is PHCP. cp 15:06 Ron Colon MD is Attending Physician. cp 16:07 Influenza Screen (a \T\ B) Sent. mm9 16:07 Strep Sent. mm9 16:07 COVID-19 SARS RT PCR Sent. mm9 16:31 Patient has correct armband on for positive identification. Provided Education on: . hb 16:31 No provider procedures requiring assistance completed. Patient did not have IV access hb during this emergency room visit. 16:35 Susana Fabian, RN is Primary Nurse. hb Administered Medications: 16:12 Drug: Ondansetron PO 4 mg Route: PO; hb 17:22 Follow up: Response: No adverse reaction hb Medication: 17:35 VIS not applicable for this client. hb Outcome: 17:19 Discharge ordered by MD. cp 17:35 Discharged to home ambulatory. hb 17:35 Condition: stable 17:35 Discharge instructions given to patient, Instructed on discharge instructions, follow up and referral plans. medication usage, Demonstrated understanding of instructions, follow-up care, medications, Prescriptions given X 1. 17:36 Patient left the ED. hb Signatures: Jan Vela PA PA cp Susana Fabian, RN RN Sue Dominguez mm9 Mari Reardon RN RN nj1 Araseli Vigil, PAS PAS ts1
--- NOTE | 2023-03-24 17:20 | EDPHYS ---
Physician Documentation [facility] Name: Shani Pat Age: 37 yrs Sex: Female : 1985 Arrival Date: 03/24/2023 Time: 13:43 Bed 12 Private MD: ED Physician Ron Colon HPI: 03/24 15:25 This 37 yrs old Female presents to ER via Ambulatory with complaints of cp Nausea/Vomiting/Diarrhea. 15:25 The patient presents to the emergency department with nausea, that is moderate, cp vomiting, that is intermittent, diarrhea, that is intermittent. Onset: The symptoms/episode began/occurred 3 day(s) ago. Possible causes: unknown. Associated signs and symptoms: Pertinent positives: decreased appetite, cough, symptoms started with sore throat, Pertinent negatives: abdominal pain, dysuria, fever, active vomiting. Historical: - Allergies: 14:19 No Known Allergies; nj1 - PMHx: 14:19 Anemia; Anxiety; heavy periods, blood transfusion; Seizures; nj1 - PSHx: 14:19 None; nj1 - Immunization history:: Client reports receiving the 2nd dose of the Covid vaccine. - Social history:: Smoking status: Patient denies any tobacco usage or history of. ROS: 15:30 Constitutional: Negative for body aches, chills, fever, poor PO intake. cp 15:30 Eyes: Negative for injury, pain, redness, and discharge. cp 15:30 ENT: Negative for drainage from ear(s), ear pain, sore throat, difficulty swallowing, difficulty handling secretions. 15:30 Respiratory: Positive for cough, Negative for shortness of breath, wheezing. 15:30 Abdomen/GI: Positive for nausea, vomiting, and diarrhea, Negative for abdominal pain. 15:30 Skin: Negative for rash. 15:30 Neuro: Negative for altered mental status, dizziness, headache, weakness. 15:30 All other systems are negative. Exam: 15:33 Constitutional: The patient appears in no acute distress, alert, awake, comfortable, cp non-toxic, well developed, well nourished. 15:33 Head/Face: Normocephalic, atraumatic. cp 15:33 Eyes: Periorbital structures: appear normal, Conjunctiva: normal, no exudate, no injection, Sclera: no appreciated abnormality, Lids and lashes: appear normal, bilaterally. 15:33 ENT: External ear(s): are unremarkable, Nose: is normal, Mouth: Lips: moist, Oral mucosa: pink and intact, moist, Posterior pharynx: is normal, airway is patent, no erythema, no exudate. 15:33 Neck: ROM/movement: is normal, is supple, without pain, no range of motions limitations. 15:33 Chest/axilla: Inspection: normal. 15:33 Cardiovascular: Rate: normal, Rhythm: regular. 15:33 Respiratory: the patient does not display signs of respiratory distress, Respirations: normal, no use of accessory muscles, no retractions, labored breathing, is not present, Breath sounds: are clear throughout, no decreased breath sounds, no stridor, no wheezing. 15:33 Abdomen/GI: Inspection: abdomen appears normal, Palpation: abdomen is soft and non-tender, in all quadrants. 15:33 Back: CVA tenderness, is absent. 15:33 Neuro: Orientation: to person, place \T\ time. Mentation: is normal, Motor: moves all fours, strength is normal. Vital Signs: 14:17 BP 131 / 91; Pulse 77; Resp 18; Temp 98.8; Pulse Ox 100% on R/A; Weight 63.5 kg; Height nj1 5 ft. 1 in. ; Pain 0/10; 14:17 Body Mass Index 26.45 (63.50 kg, 154.94 cm) nj1 14:17 Pain Scale: Adult nj1 MDM: 15:07 Patient medically screened. 16:00 Differential diagnosis: gastritis, cholecystitis, appendicitis, viral gastroenteritis, cp gastroenteritis. 16:38 ED course: nausea improved, patient tolerating po fluids, vomiting resolved. 17:18 Data reviewed: vital signs, nurses notes, lab test result(s). 17:18 I considered the following discharge prescriptions or medication management in the emergency department Medications were administered in the Emergency Department. See MAR. Test considered but Not performed: Labs: cbc, bmp. Counseling: I had a detailed discussion with the patient and/or guardian regarding the historical points, exam findings, and any diagnostic results supporting the discharge/admit diagnosis, lab results, to return to the emergency department if symptoms worsen or persist or if there are any questions or concerns that arise at home. Response to treatment: the patient's symptoms have markedly improved after treatment, and as a result, I will discharge patient. 03/24 15:24 Order name: Urine Microscopic Only; Complete Time: 16:40 cp 03/24 16:40 Interpretation: Normal except: URBC 11-20; MUCUS 4+. cp 03/24 15:24 Order name: PREGU; Complete Time: 16:40 cp 03/24 16:40 Interpretation: Reviewed. cp 03/24 15:24 Order name: COVID-19 SARS RT PCR; Complete Time: 17:13 cp 03/24 15:24 Order name: Strep cp 03/24 15:24 Order name: Influenza Screen (a \T\ B); Complete Time: 17:13 cp 03/24 17:14 Interpretation: Reviewed. cp 03/24 16:39 Order name: Throat Culture EDMS 03/24 16:21 Order name: PO challenge; Complete Time: 16:29 cp Administered Medications: 16:12 Drug: Ondansetron PO 4 mg Route: PO; hb 17:22 Follow up: Response: No adverse reaction hb Disposition: 18:01 I reviewed the patient's care provided by the Advanced Practice Provider and agree with jrKika the diagnosis and treatment plan. Disposition Summary: 03/24/23 17:19 Discharge Ordered Location: Home cp Problem: new cp Symptoms: have improved cp Condition: Stable cp Diagnosis - Nausea with vomiting, unspecified cp - Diarrhea, unspecified cp - SARS-associated coronavirus as the cause of diseases classified elsewhere cp Followup: cp - With: Private Physician - When: 2 - 3 days - Reason: Worsening of condition Discharge Instructions: - Discharge Summary Sheet cp - Food Choices to Help Relieve Diarrhea, Adult cp - Diarrhea, Adult cp - Nausea, Adult cp - Vomiting, Adult cp - COVID-19 cp - 10 Things You Can Do to Manage Your COVID-19 Symptoms at Home - [facility] (02/18/2021) cp - COVID-19: Quarantine and Isolation - [facility] (11/02/2021) cp Forms: - Work release form cp - Medication Reconciliation Form cp - Thank You Letter cp - Antibiotic Education cp - Prescription Opioid Use cp - Patient Portal Instructions cp - Leadership Thank You Letter cp Prescriptions: - Zofran 4 mg Oral Tablet - take 1 tablet by ORAL route every 12 hours As needed; 10 tablet; Refills: 0, cp Product Selection Permitted Signatures: Dispatcher [employer] Jan Díaz PA PA cp Baxter, Heather, RN RN hb Ron Colon MD MD jr11 Mari Reardon RN RN nj1
[2023-03-24 17:40] VITALS: BP 131/91; TEMP 98.8; O2SAT 100
== END 2023-03-24 17:36 | disposition home or self-care (01) ==
LOC: ER 13:43
DX: U07.1 COVID-19 (principal); R11.2 Nausea with vomiting, unspecified; R19.7 Diarrhea, unspecified; D64.9 Anemia, unspecified; F41.9 Anxiety disorder, unspecified; R56.9 Unspecified convulsions; Z20.822 Contact with and (suspected) exposure to COVID-19
CPT/HCPCS: 81015; 81025; 87070; 87081; 87635; 87804; 99283; Q0162

== ENCOUNTER → 2023-09-29 | Emergency (ER) | payer SELFPAY ==
[~2023-09-29] MED LIST: DIPHENHYDRAMINE 50 MG/ML VIAL ONE; KETOROLAC 30 MG/ML INJ ONE; METHYLPREDNISOLONE 125 MG INJ ONE; NA CHLORIDE 0.9% 1,000 ML ONE; ONDANSETRON 4 MG/2 ML VIAL ONE
--- OUTSIDE RECORDS SUMMARY | 2023-09-29 14:25 | XMS REPORT | Continuity of Care Document ---
Author Name Unknown Address [address] [place] [address] [facility] Address [address] [place] [address] Care Team Providers Care Casting Chipper Name Role Phone Unavailable Unavailable Unavailable Encounters Start Date/Time End Date/Time Encounter Type Admission Type Attending Clinicians Care Facility Care Department Encounter ID Source 2023-07-21 11:54:31 2023-07-21 11:54:31 Outpatient [facility] [id number] Julio 2023-01-24 14:31:37 2023-01-24 14:31:37 Outpatient [facility] [id number] Carrillo Julio 2023-01-10 15:47:06 2023-01-10 15:47:06 Outpatient [facility] [id number] Julio 2022-11-28 11:27:33 2022-11-28 11:27:33 Outpatient [facility] [id number] Lorena Julio 2022-09-29 16:21:04 2022-09-29 16:21:04 Outpatient [facility] [id number] Carr[address] Julio 2022-09-19 15:38:07 2022-09-19 15:38:07 Outpatient [facility] [id number] Lorena Julio Results Test Description Test Time Test Comments Results Result Co mments Source
[2023-09-29 15:07] LABS: Absolute Lymphocytes (CBC) 1.5 K/uL (0.7-4.9); Hematocrit 33.5 % (36.0-45.0); Lymphocytes % 16.8 % (15.3-44.8); MCV 80.5 fL (80-100); MPV 6.8 fL (7.6-11.3); Platelets 358 thou/uL (152-406); RBC Red Blood Cell Count 4.17 M/uL (3.86-4.86)
[2023-09-29 15:09] LABS: Specific Gravity 1.028 (1.005-1.030); Urine Bacteria <20 /HPF (<20); Urine Bilirubin NEGATIVE (Negative); Urine Blood 3+ (OVER) (Negative); Urine Clarity Extremely Turbid (Clear); Urine Color Yellow (Yellow); Urine Glucose NEGATIVE (Negative); Urine Mucus 3+ /HPF (None Seen); Urine Protein TRACE (Negative); Urine Urobilinogen Normal (Normal)
[2023-09-29 15:22] LABS: Potassium 3.8 mEq/L (3.5-5.1)
--- NOTE | 2023-09-29 15:47 | ER ---
Nurse's Notes [facility] Name: Shani Pat Age: 38 yrs Sex: Female : 1985 Arrival Date: 09/29/2023 Time: 14:21 Bed 16 Private MD: Diagnosis: Migraine without aura, not intractable;Nausea with vomiting, unspecified Presentation: 09/29 14:28 Chief complaint: Patient states: Vomiting X2 days and headache. Pt states that her hb headache feels like the migraines she gets. Pt also reports diarrhea. Coronavirus screen: Vaccine status: Patient reports receiving the 2nd dose of the covid vaccine. Client denies travel out of the [place] in the last 14 days. Ebola Screen: Patient denies travel to an Ebola-affected area in the 21 days before illness onset. No symptoms or risks identified at this time. Initial Sepsis Screen: Does the patient meet any 2 criteria? No. Patient's initial sepsis screen is negative. Does the patient have a suspected source of infection? No. Patient's initial sepsis screen is negative. Risk Assessment: Do you want to hurt yourself or someone else? Patient reports no desire to harm self or others. Onset of symptoms was September 29, 2023. 14:28 Method Of Arrival: Ambulatory hb 14:28 Acuity: CECI 3 hb Historical: - Allergies: 14:29 No Known Allergies; hb - PMHx: 14:29 Anemia; Anxiety; heavy periods; Seizures; hb - Immunization history:: Adult Immunizations up to date. - Social history:: Smoking status: Patient denies any tobacco usage or history of. Screenin:06 [facility] ED Fall Risk Assessment (Adult) History of falling in the last 3 months, kc6 including since admission No falls in past 3 months (0 pts) Confusion or Disorientation No (0 pts) Intoxicated or Sedated No (0 pts) Impaired Gait No (0 pts) Mobility Assist Device Used No (0 pt) Altered Elimination No (0 pt) Score/Fall Risk Level 0 - 2 = Low Risk. Abuse screen: Denies threats or abuse. Denies injuries from another. Nutritional screening: No deficits noted. Tuberculosis screening: No symptoms or risk factors identified. Assessment: 15:07 General: Appears in no apparent distress. comfortable, well groomed, well developed, kc6 Behavior is calm, cooperative, appropriate for age. Neuro: Level of Consciousness is awake, alert, obeys commands, Oriented to person, place, time, situation, Appropriate for age Reports headache. Cardiovascular: Capillary refill < 3 seconds. Respiratory: Airway is patent Trachea midline Respiratory effort is even, unlabored, Respiratory pattern is regular, symmetrical. GI: Abdomen is flat, non-distended, Bowel sounds present X 4 quads. Abd is soft and non tender X 4 quads. Reports nausea, vomiting, Patient currently denies diarrhea. : No signs and/or symptoms were reported regarding the genitourinary system. Urine is clear. EENT: No signs and/or symptoms were reported regarding the EENT system. Derm: No signs and/or symptoms reported regarding the dermatologic system. Skin is intact, is healthy with good turgor, Skin is pink, warm \T\ dry. Musculoskeletal: No signs and/or symptoms reported regarding the musculoskeletal system. Circulation, motion, and sensation intact. Capillary refill < 3 seconds, Range of motion: intact in all extremities. 16:16 Reassessment: Patient appears in no apparent distress at this time. No changes from kc6 previously documented assessment. Patient and/or family updated on plan of care and expected duration. Pain level reassessed. Patient is alert, oriented x 3, equal unlabored respirations, skin warm/dry/pink. Vital Signs: 14:28 BP 121 / 94; Pulse 79; Resp 16; Temp 98.4; Pulse Ox 100% on R/A; Weight 63.96 kg (R); hb Height 5 ft. 1 in. (R); Pain 7/10; 16:16 BP 127 / 85; Pulse 81; Resp 16 S; Pulse Ox 100% on R/A; kc6 14:28 Body Mass Index 26.64 (63.96 kg, 154.94 cm) hb 14:28 Pain Scale: Adult hb ED Course: 14:23 Patient arrived in ED. mr 14:24 [facility] jh7 14:24 Gilberto Alexander MD is Attending Physician. jh7 14:29 Triage completed. hb 14:30 Arm band placed on Patient placed in an exam room, on a stretcher. hb 14:38 Cecilia Lazo, VALENTINO is Primary Nurse. kc6 15:06 Inserted saline lock: 20 gauge in left antecubital area, using aseptic technique. Blood kc6 collected. Patient maintains SpO2 saturation greater than 95% on room air. 15:07 Patient has correct armband on for positive identification. Bed in low position. Call kc6 light in reach. Side rails up X 1. Client placed on continuous cardiac and pulse oximetry monitoring. NIBP monitoring applied. 16:20 No provider procedures requiring assistance completed. IV discontinued, intact, kc6 bleeding controlled, No redness/swelling at site. Pressure dressing applied. Administered Medications: 15:06 Drug: NS 0.9% IV 1000 ml IV at 1 bolus Per protocol; 1000 mL bolus Route: IV; Rate: 1 kc6 bolus; Site: left antecubital; 16:20 Follow up: Response: No adverse reaction; IV Status: Completed infusion; IV Intake: kc6 1000ml 15:06 Drug: Ketorolac IVP 30 mg IVP once Route: IVP; Site: left antecubital; kc6 16:20 Follow up: Response: No adverse reaction; Pain is decreased kc6 15:06 Drug: Ondansetron IVP 4 mg IVP once; over 2 minutes Route: IVP; Site: left antecubital; kc6 16:20 Follow up: Response: No adverse reaction; Nausea is decreased; Vomiting decreased kc6 15:06 Drug: diphenhydrAMINE IVP 25 mg IVP once Route: IVP; Site: left antecubital; kc6 16:20 Follow up: Response: No adverse reaction kc6 15:06 Drug: MethylPrednisoLONE IVP 125 mg IVP once Route: IVP; Site: left antecubital; kc6 16:20 Follow up: Response: No adverse reaction kc6 Medication: 16:21 VIS not applicable for this client. kc6 Intake: 16:20 IV: 1000ml; Total: 1000ml. kc6 Outcome: 15:46 Discharge ordered by MD. wild 16:21 Discharged to home ambulatory, kc6 16:21 Condition: improved 16:21 Discharge instructions given to patient, Instructed on discharge instructions, follow up and referral plans. medication usage, Demonstrated understanding of instructions, follow-up care, medications, Prescriptions given X 2, 16:21 Patient left the ED. kc6 Signatures: Ibis Hamm, Reg Reg Susana Galvez, RN RN Silvana Chauhan, COUNTER HOP COUNTER HOP jh7 Cecilia Lazo, RN RN kc6
--- NOTE | 2023-09-29 15:47 | EDPHYS ---
Physician Documentation [facility] Name: Shani Pat Age: 38 yrs Sex: Female : 1985 Arrival Date: 09/29/2023 Time: 14:21 Bed 16 Private MD: ED Physician Gilberto Alexander HPI: 09/29 14:29 This 38 yrs old Female presents to ER via Ambulatory with complaints of jh7 Vomiting. 14:29 The patient presents to the emergency department with nausea, vomiting, diarrhea. jh7 Onset: The symptoms/episode began/occurred 2 day(s) ago. Possible causes: migraine. 38-year-old female presents to the ER complaining of vomiting and diarrhea for the past 2 days. The patient reports that her migraines often cause her to vomit. Reports that this feels like her typical migraine with the exception of diarrhea. Denies fever and cough. No other significant past medical or past surgical history.. Historical: - Allergies: 14:29 No Known Allergies; hb - PMHx: 14:29 Anemia; Anxiety; heavy periods; Seizures; hb - Immunization history:: Adult Immunizations up to date. - Social history:: Smoking status: Patient denies any tobacco usage or history of. ROS: 14:29 Constitutional: Negative for fever, chills, and weight loss, Eyes: Negative for injury, jh7 pain, redness, and discharge, Neck: Negative for injury, pain, and swelling, Cardiovascular: Negative for chest pain, palpitations, and edema, Respiratory: Negative for shortness of breath, cough, wheezing, and pleuritic chest pain, Back: Negative for injury and pain, MS/Extremity: Negative for injury and deformity, Skin: Negative for injury, rash, and discoloration, 14:29 Abdomen/GI: Positive for nausea, vomiting, and diarrhea, Negative for abdominal pain, abdominal cramps, abdominal distension, 14:29 Neuro: Positive for headache, Negative for altered mental status, dizziness, numbness, seizure activity, speech changes, syncope, visual changes, weakness, 14:29 All other systems are negative, Exam: 14:29 Constitutional: This is a well developed, well nourished patient who is awake, alert, jh7 and in no acute distress. Head/Face: Normocephalic, atraumatic. Eyes: Pupils equal round and reactive to light, extra-ocular motions intact. Lids and lashes normal. Conjunctiva and sclera are non-icteric and not injected. Cornea within normal limits. Periorbital areas with no swelling, redness, or edema. Neck: Trachea midline, no thyromegaly or masses palpated, and no cervical lymphadenopathy. Supple, full range of motion without nuchal rigidity, or vertebral point tenderness. No Meningismus. Respiratory: Lungs have equal breath sounds bilaterally, clear to auscultation and percussion. No rales, rhonchi or wheezes noted. No increased work of breathing, no retractions or nasal flaring. Abdomen/GI: Soft, non-tender, with normal bowel sounds. No distension or tympany. No guarding or rebound. No evidence of tenderness throughout. Vital Signs: 14:28 BP 121 / 94; Pulse 79; Resp 16; Temp 98.4; Pulse Ox 100% on R/A; Weight 63.96 kg (R); hb Height 5 ft. 1 in. (R); Pain 7/10; 16:16 BP 127 / 85; Pulse 81; Resp 16 S; Pulse Ox 100% on R/A; kc6 14:28 Body Mass Index 26.64 (63.96 kg, 154.94 cm) hb 14:28 Pain Scale: Adult hb MDM: 14:24 Patient medically screened. [facility] 15:45 Differential diagnosis: viral gastroenteritis, gastroenteritis, Acute migraine 7 headache. Data reviewed: vital signs, nurses notes, lab test result(s). I considered the following discharge prescriptions or medication management in the emergency department Medications were administered in the Emergency Department. See MAR. Counseling: I had a detailed discussion with the patient and/or guardian regarding the historical points, exam findings, and any diagnostic results supporting the discharge/admit diagnosis, to return to the emergency department if symptoms worsen or persist or if there are any questions or concerns that arise at home. Response to treatment: the patient's symptoms have markedly improved after treatment. 09/29 14:42 Order name: BMP; Complete Time: 15:41 [facility] 09/29 14:42 Order name: CBC with Diff; Complete Time: 15:41 [facility] 09/29 14:42 Order name: Urinalysis w/ reflexes; Complete Time: 15: [facility] 02/24 14:42 Order name: Flu; Complete Time: 15:41 [facility] Administered Medications: 15:06 Drug: NS 0.9% IV 1000 ml IV at 1 bolus Per protocol; 1000 mL bolus Route: IV; Rate: 1 kc6 bolus; Site: left antecubital; 16:20 Follow up: Response: No adverse reaction; IV Status: Completed infusion; IV Intake: kc6 1000ml 15:06 Drug: Ketorolac IVP 30 mg IVP once Route: IVP; Site: left antecubital; kc6 16:20 Follow up: Response: No adverse reaction; Pain is decreased kc6 15:06 Drug: Ondansetron IVP 4 mg IVP once; over 2 minutes Route: IVP; Site: left antecubital; kc6 16:20 Follow up: Response: No adverse reaction; Nausea is decreased; Vomiting decreased kc6 15:06 Drug: diphenhydrAMINE IVP 25 mg IVP once Route: IVP; Site: left antecubital; kc6 16:20 Follow up: Response: No adverse reaction kc6 15:06 Drug: MethylPrednisoLONE IVP 125 mg IVP once Route: IVP; Site: left antecubital; kc6 16:20 Follow up: Response: No adverse reaction kc6 Disposition: 16:32 Co-signature as Attending Physician, Gilberto Alexander MD I agree with the assessment and kdr plan of care. Disposition Summary: 09/29/23 15:46 Discharge Ordered Notes: Location: Home [facility] Problem: new [facility] Symptoms: have improved [facility] Condition: Stable [facility] Diagnosis - Migraine without aura, not intractable [facility] - Nausea with vomiting, unspecified [facility] Followup: [facility] - With: Private Physician - When: 2 - 3 days - Reason: Recheck today's complaints Discharge Instructions: - Discharge Summary Sheet [facility] - Migraine Headache [facility] - Nausea and Vomiting, Adult [facility] Forms: - Medication Reconciliation Form [facility] - Thank You Letter [facility] - Patient Portal Instructions [facility] - Leadership Thank You Letter [facility] Prescriptions: - ondansetron 4 mg Oral Tablet,disintegrating - take 1 tablet ORAL route every 4 to 6 hours As needed; 20 tablet; Refills: 0, [facility] Product Selection Permitted - Medrol (Igor) 4 mg Oral Tablets, Dose Pack - take 1 tablet ORAL route as directed - follow package instructions; 1 packet; [facility] Refills: 0, Product Selection Permitted Signatures: Dispatcher [employer] Gilberto Smith MD MD kdr Baxter, Heather, RN RN Silvana Chahuan FNP FNP 7 Cecilia Lazo RN RN kc6
[2023-09-29 16:41] VITALS: BP 127/85; TEMP 98.4; O2SAT 100
== END ==
LOC: ER 14:21
DX: G43.009 Migraine without aura, not intractable, without status migrainosus (principal); R11.2 Nausea with vomiting, unspecified
CPT/HCPCS: 36415; 80048; 81001; 85025; 87804; 96361; 96374; 96375; 99285; J1200; J2405; J2930; J7030

== ENCOUNTER 2023-11-19 12:47 | Emergency (ER) | payer SELFPAY ==
--- OUTSIDE RECORDS SUMMARY | 2023-11-19 12:51 | XMS REPORT | Continuity of Care Document ---
Author Name Unknown Address [address] [place] [address] [facility] thconnect Address [address] [place] [address] Care Team Providers [employer] Name Role Phone Unavailable Unavailable Unavailable Encounters Start Date/Time End Date/Time Encounter Type Admission Type Attending Clinicians Care Facility Care Department Encounter ID Source 2023-07-21 11:54:31 2023-07-21 11:54:31 Outpatient [facility] [id number] 2023-01-24 14:31:37 2023-01-24 14:31:37 Outpatient [facility] [id number] 2023-01-10 15:47:06 2023-01-10 15:47:06 Outpatient [facility] [id number] 2022-11-28 11:27:33 2022-11-28 11:27:33 Outpatient [facility] [id number] 2022-09-29 16:21:04 2022-09-29 16:21:04 Outpatient [facility] [id number] 2022-09-19 15:38:07 2022-09-19 15:38:07 Outpatient [facility] [id number] Results Test Description Test Time Test Comments Results Result Co mments Source
[2023-11-19 13:22] LABS: Specific Gravity 1.029 (1.005-1.030)
[2023-11-19] MEDS ORDERED: ONDANSETRON 4 MG/2 ML VIAL ONE (13:38)
[2023-11-19] MEDS ORDERED: NA CHLORIDE 0.9% 1,000 ML ONE (13:38)
[2023-11-19 13:39] LABS: Specific Gravity 1.029 (1.005-1.030); Sqamous Epithelial <5 /HPF (None Seen); Urine Bacteria <20 /HPF (<20); Urine Bilirubin NEGATIVE (Negative); Urine Blood 1+ (Negative); Urine Clarity Extremely Turbid (Clear); Urine Color Yellow (Yellow); Urine Culture Reflex Order NOT NEEDED; Urine Glucose NEGATIVE (Negative); Urine Ketones TRACE (Negative); Urine Microscopic Reflex YN ORDER UMIC; Urine Mucus 4+ /HPF (None Seen); Urine Nitrite NEGATIVE (Negative); Urine Protein 1+ (Negative); Urine Urobilinogen Normal (Normal); Urine WBC <5 /HPF (<5)
[2023-11-19 13:47] LABS: Absolute Lymphocytes (CBC) 1.4 K/uL (0.7-4.9); Absolute Monocytes 0.4 K/uL (0.1-1.3); Absolute Neutrophil 6.2 K/uL (1.8-8.0); Basophils % 0.4 % (0-1.3); Eosinophils % 0.4 % (0-4.4); Hematocrit 32.9 % (36.0-45.0); Hemoglobin 10.5 g/dL (12.0-15.0); Lymphocytes % 17.8 % (15.3-44.8); MCH 24.8 pg (27.0-35.0); MCHC 31.8 g/dL (32.0-36.0); MCV 77.9 fL (80-100); MPV 7.1 fL (7.6-11.3); Monocytes % 5.3 % (3.3-12.3); Neutrophils % 76.1 % (41.7-73.7); Platelets 400 thou/uL (152-406); RBC Red Blood Cell Count 4.23 M/uL (3.86-4.86); Red Cell Distribution Width 16.6 % (12.1-15.2)
[2023-11-19 14:07] LABS: SARS-CoV-2 Antigen CONTROL BLUE LINE VIS/BG OK; SARS-CoV-2 Antigen Rapid Res Negative (Negative)
[2023-11-19 14:25] LABS: Albumin 3.9 g/dL (3.4-5.0); Anion Gap 8.7 mEq/L (5.0-15.0); Bilirubin Total 0.4 mg/dL (0.2-1.0); Globulin 3.8 g/dL (2.3-3.5); Potassium 3.7 mEq/L (3.5-5.1); Protein, Total 7.7 g/dL (6.4-8.2)
--- NOTE | 2023-11-19 14:43 | ER ---
Nurse's Notes [facility] Name: Shani Pat Age: 38 yrs Sex: Female : 1985 Arrival Date: 11/19/2023 Time: 12:47 Bed 11 Private MD: Diagnosis: UTI/ Urinary tract infection, site not specified;Vaginitis, vulvitis and vulvovaginitis in diseases classified elsewhere Presentation: 11/18 12:55 Chief complaint: Patient states: Vomiting for the past 2 days along with diarrhea, nj1 denies fever/abdominal pain. Also complains of itching and burning sensation on vaginal area for 2 days, no discharge. Ebola Screen: Patient denies travel to an Ebola-affected area in the 21 days before illness onset. Initial Sepsis Screen: Does the patient meet any 2 criteria? No. Patient's initial sepsis screen is negative. Does the patient have a suspected source of infection? No. Patient's initial sepsis screen is negative. Risk Assessment: Do you want to hurt yourself or someone else? Patient reports no desire to harm self or others. Onset of symptoms was November 18, 2023. 12:55 Method Of Arrival: Ambulatory [facility] 12:55 Acuity: CECI 3 nj1 12:59 Coronavirus screen: Vaccine status: Patient reports receiving the 2nd dose of the covid nj1 vaccine. Triage Assessment: 13:00 General: Appears in no apparent distress. comfortable, Behavior is calm, cooperative, nj1 appropriate for age. 13:00 Pain: Denies pain. GI: Reports vomiting, Patient currently denies abdominal pain, nj1 diarrhea. : Reports burning with urination, vaginal itching, Denies discharge. 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 - Infectious Disease History:: Denies. - Social history:: Smoking status: Patient denies any tobacco usage or history of. - Family history:: not pertinent. - Hospitalizations: : No recent hospitalization is reported. Screenin:17 [facility] ED Fall Risk Assessment (Adult) History of falling in the last 3 months, ll1 including since admission No falls in past 3 months (0 pts) Confusion or Disorientation No (0 pts) Intoxicated or Sedated No (0 pts) Impaired Gait No (0 pts) Mobility Assist Device Used No (0 pt) Altered Elimination No (0 pt) Score/Fall Risk Level 0 - 2 = Low Risk Maintained a safe environment, Hourly rounding (assess needs \T\ fall precautionary measures) done. Abuse screen: Denies threats or abuse. Nutritional screening: No deficits noted. Tuberculosis screening: No symptoms or risk factors identified. Assessment: 15:17 Reassessment: No changes from previously documented assessment. Patient and/or family ll1 updated on plan of care and expected duration. Pain level reassessed. Patient is alert, oriented x 3, equal unlabored respirations, skin warm/dry/pink. General: Appears in no apparent distress. Behavior is calm, cooperative, appropriate for age. Pain: Complains of pain in pelvis Pain currently is 3 out of 10 on a pain scale. Quality of pain is described as tender, itching. GI: Abdomen is flat, Reports lower abdominal pain, nausea. : Reports urgency, urinary frequency, vaginal itching. Vital Signs: 12:55 BP 133 / 98; Pulse 90; Resp 16; Temp 99(O); Pulse Ox 100% ; nj1 15:16 BP 132 / 97; Pulse 73; Resp 16; Temp 100; Pain 3/10; ll1 15:16 Pain Scale: Adult ll1 ED Course: 12:49 Patient arrived in ED. mr 12:49 Chandrakant Booker MD is Attending Physician. rn 12:58 Triage completed. nj1 12:58 Arm band placed on right wrist. nj1 13:24 Urinalysis w/ reflexes Sent. nj1 13:28 Inserted saline lock: 22 gauge in right antecubital area, using aseptic technique. nj1 Blood collected. 13:34 CBC with Diff Sent. nj1 13:34 CMP Sent. nj1 13:34 Lipase Sent. nj1 13:34 SARS RAPID Sent. nj1 13:34 Flu Sent. nj1 15:07 Yusef Barreto, VALENTINO is Primary Nurse. ll1 15:16 No provider procedures requiring assistance completed. IV discontinued, intact, ll1 bleeding controlled, No redness/swelling at site. Pressure dressing applied. 15:18 Patient has correct armband on for positive identification. Call light in reach. ll1 Provided Education on: finish all prescribed antibiotics and antifungals. Administered Medications: 13:42 Drug: NS 0.9% IV 1000 ml IV at 1 bolus Per protocol; 1000 mL bolus Route: IV; Rate: 1 nj1 bolus; Site: right antecubital; 15:07 Follow up: Response: No adverse reaction; IV Status: Completed infusion; IV Intake: ll1 1000ml 13:42 Drug: Ondansetron IVP 4 mg IVP once; over 2 minutes Route: IVP; Site: right antecubital;nj1 15:07 Follow up: Response: No adverse reaction [facility] 15:07 Drug: Fluconazole PO 200 mg PO once Route: PO; ll1 15:19 Follow up: Response: No adverse reaction [facility] Medication: 15:18 VIS not applicable for this client. [facility] Intake: 15:07 IV: 1000ml; Total: 1000ml. [facility] Outcome: 14:42 Discharge ordered by . rn 15:18 Discharged to home ambulatory, [facility] 15:18 Condition: stable 15:18 Discharge instructions given to patient, Instructed on discharge instructions, follow up and referral plans. medication usage, Demonstrated understanding of instructions, follow-up care, medications, Prescriptions given X 3, 15:19 Patient left the ED. [facility] Signatures: Ibis Hamm, Pradip Moseley mr Chandrakant Booker MD MD rn Lewis, Lynsay, RN RN [facility] Mari Reardon RN RN [facility] Corrections: (The following items were deleted from the chart) 12:59 12:55 Chief complaint: Patient states: Vomiting for the past 2 days along with nj1 diarrhea, denies fever. Also complains of itching and burning sensation on vaginal area for [address] [facility] 12:59 12:55 Onset of symptoms was November 2023 nj nj
--- NOTE | 2023-11-19 14:43 | EDPHYS ---
Physician Documentation [facility] Name: Shani Pat Age: 38 yrs Sex: Female : 1985 Arrival Date: 11/19/2023 Time: 12:47 Bed 11 Private MD: ED Physician Chandrakant Booker HPI: 11/18 13:07 This 38 yrs old Female presents to ER via Ambulatory with complaints of rn Vomiting, Vaginal Itching. 13:07 The patient presents to the emergency department with nausea, vomiting. rn 13:08 Onset: The symptoms/episode began/occurred yesterday. Possible causes: unknown. The rn symptoms are aggravated by nothing. The symptoms are alleviated by nothing. Associated signs and symptoms: Pertinent positives: dysuria, nausea, vomiting, Pertinent negatives: fever, GI bleeding. Severity of symptoms: At their worst the symptoms were mild in the emergency department the symptoms are unchanged. The patient has not experienced similar symptoms in the past. Patient reports nausea and vomiting for 2 days. No fever but does feel sick. Denies . Also reports gets a lot of yeast infections and noticed recently some vaginal itching and dysuria. No vaginal discharge. No pelvic pain. No diarrhea. No runny nose or sore throat.. 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 - Infectious Disease History:: Denies. - Social history:: Smoking status: Patient denies any tobacco usage or history of. - Family history:: not pertinent. - Hospitalizations: : No recent hospitalization is reported. ROS: 13:08 Constitutional: Negative for fever, weight loss, Eyes: Negative for injury, pain, rn redness, and discharge, Cardiovascular: Negative for chest pain, palpitations, and edema, Respiratory: Negative for shortness of breath, cough, wheezing, and pleuritic chest pain, Abdomen/GI: Positive for nausea and vomiting. Back: Negative for injury and pain, : Positive for dysuria MS/Extremity: Negative for injury and deformity, Skin: Negative for injury, rash, and discoloration, Neuro: Negative for headache, weakness, numbness, tingling, and seizure, Exam: 13:17 Constitutional: This is a well developed, well nourished patient who is awake, alert, rn and in no acute distress. Cardiovascular: Regular rate and rhythm. No pulse deficits. Respiratory: No increased work of breathing, no retractions or nasal flaring. Abdomen/GI: Soft, nontender, no rebound Skin: Warm, dry MS/ Extremity: Pulses equal, no cyanosis. Neuro: Awake and alert, GCS 15 Vital Signs: 12:55 BP 133 / 98; Pulse 90; Resp 16; Temp 99(O); Pulse Ox 100% ; nj1 15:16 BP 132 / 97; Pulse 73; Resp 16; Temp 100; Pain 3/10; ll1 15:16 Pain Scale: Adult ll1 MDM: 12:49 Patient medically screened. rn 14:41 Differential diagnosis: Nonspecific abd pain, gastritis, pancreatitis, appendicitis, rn diverticulitis, viral gastroenteritis, gastroenteritis. Data reviewed: vital signs, nurses notes, lab test result(s), and as a result, I will discharge patient. Counseling: I had a detailed discussion with the patient and/or guardian regarding the historical points, exam findings, and any diagnostic results supporting the discharge/admit diagnosis, lab results, the need for outpatient follow up, to return to the emergency department if symptoms worsen or persist or if there are any questions or concerns that arise at home. Special discussion: I discussed with the patient/guardian in detail that at this point there is no indication for admission to the hospital. It is understood, however, that if the symptoms persist or worsen the patient needs to return immediately for re-evaluation. ED course: Normal WBC. Benign abdominal exam. Will discharge home with antibiotics and Diflucan for urinary tract infection and vaginitis. Return precautions given and understood.. 11/18 13:01 Order name: CBC with Diff; Complete Time: 14:27 rn 11/18 13:01 Order name: CMP; Complete Time: 14:27 rn 11/18 13:01 Order name: Lipase; Complete Time: 14:27 rn 11/18 13:01 Order name: Test, Urine; Complete Time: 13:48 rn 11/18 13:01 Order name: Urinalysis w/ reflexes; Complete Time: 13:48 rn 11/18 13:01 Order name: Flu; Complete Time: 14:27 rn 11/18 13:01 Order name: SARS RAPID; Complete Time: 14:27 rn 11/18 13:01 Order name: IV Saline Lock; Complete Time: 13:34 rn 11/18 13:01 Order name: Labs collected and sent; Complete Time: 13:34 rn Administered Medications: 13:42 Drug: NS 0.9% IV 1000 ml IV at 1 bolus Per protocol; 1000 mL bolus Route: IV; Rate: 1 nj1 bolus; Site: right antecubital; 15:07 Follow up: Response: No adverse reaction; IV Status: Completed infusion; IV Intake: ll1 1000ml 13:42 Drug: Ondansetron IVP 4 mg IVP once; over 2 minutes Route: IVP; Site: right antecubital;nj1 15:07 Follow up: Response: No adverse reaction ll1 15:07 Drug: Fluconazole PO 200 mg PO once Route: PO; ll1 15:19 Follow up: Response: No adverse reaction ll1 Disposition Summary: 11/19/23 14:42 Discharge Ordered Notes: Location: Home rn Problem: new rn Symptoms: have improved rn Condition: Stable rn Diagnosis - UTI/ Urinary tract infection, site not specified rn - Vaginitis, vulvitis and vulvovaginitis in diseases classified elsewhere rn Followup: rn - With: Private Physician - When: As needed - Reason: Recheck today's complaints, Re-evaluation by your physician Discharge Instructions: - Discharge Summary Sheet rn - Urinary Tract Infection, Adult rn - Vaginitis rn Forms: - Medication Reconciliation Form rn - Thank You Letter rn - Antibiotic rn admission - Prescription Opioid Use rn - Patient Portal Instructions rn - Leadership Thank You Letter rn - Work release form ll1 Prescriptions: - Cipro 500 mg Oral Tablet - take 1 tablet ORAL route every 12 hours for 7 days; 14 tablet; Refills: 0, rn Product Selection Permitted - Fluconazole 150 mg Oral tablet - take 1 tablet ORAL route once daily for 3 days; 3 tablet; Refills: 0, Product rn Selection Permitted Signatures: Dispatcher [employer] Chandrakant Voss MD MD rn Lewis, Lynsay, RN RN ll1 Mari Reardon RN RN nj1
[2023-11-19] MEDS ORDERED: FLUCONAZOLE 100 MG TAB ONE (15:05)
[2023-11-19 16:45] VITALS: BP 132/97; TEMP 100; O2SAT 100
== END 2023-11-19 15:19 | disposition home or self-care (01) ==
LOC: ER 12:47
DX: N39.0 Urinary tract infection, site not specified (principal); N77.1 Vaginitis, vulvitis and vulvovaginitis in diseases classified elsewhere
CPT/HCPCS: 36415; 80053; 81001; 81025; 83690; 85025; 87804; 87811; 96361; 96374; 99284; J2405; J7030